=== PATIENT | male | born 1965 | race Caucasian/White ===

== ENCOUNTER 2021-07-08 07:06 | Inpatient (IN) ==
[2021-07-08 07:09] VITALS: BMI 27.9
--- NOTE | 2021-07-08 07:34 | DR.SOBA ---
HPI Time Seen Time Seen by Provider: 07/08/21 07:23 Primary Care Physician Primary Care Physician: LISSETT HPI Comment HPI Comment: A 56 y/o male presenting with c/o "hurting in lungs, SOB and coughing." He denies fever or chills. Complaints Chief Complaint:: PT C/O HURTING IN HIS LUNGS. PATIENT STATES HE HAS BEEN SICK FOR TWO WEEKS, BUT THE AST THREE DAYS HE HAS BEEN HAVING SEVERE SHORTNESS OF BREATH WITH LUNG PAIN. PATIENT IS NOTED TO NOT BE ABLE TO TALK VERY MUCH D/T COUGHING COVID-19 Coronavirus risk:travel/contact w/high risk person: Yes Has patient experienced Coronavirus symptoms: Yes Coronavirus symptoms experienced: Coughing and Shortness of Breath Reviewed Nurses Notes Reviewed: Yes Source History Provided: Patient Mode of Arrival Mode of Arrival: Ambulatory Timing Onset of Chief Complaint: 07/05/21 Duration Duration: Weeks Context Onset:: At Rest PE Risk Factors:: None PMH PMH Past Medical History: No Past Surgical History: Yes Surgical History: Appendectomy Family History History of Family Medical Conditions: No Social History Does any household member use tobacco: No Alcohol Use: None Do you use any recreational Drugs:: No Lives With: Family Lives Where: Home Travel Risk Coronavirus risk:travel/contact w/high risk person: Yes Has patient experienced Coronavirus symptoms: Yes Coronavirus symptoms experienced: Coughing and Shortness of Breath Infectious screening In the last 2 months have you had wt loss of >10#?: NO Have you had fever, night sweats or hemotysis?: No Have you traveled outside the country in the last 6 months?: No Isolation: Droplet ROS Review of Systems Constitutional: No Symptoms Reported Eyes: No Symptoms Reported ENTM: No Symptoms Reported Respiratoy: Non-Productive Cough and Short of Breath Cardiovascular: No Symptoms Reported Gastrointestinal/Abdominal: No Symptoms Reported Genitourinary: No Symptoms Reported Neurological: No Symptoms Reported Musculoskeletal: No Symptoms Reported Integumentary: No Symptoms Reported Hematologic/Lymphatic: No Symptoms Reported Endocrine: No Symptoms Reported Psychiatric: No Symptoms Reported PE Vital Signs Vitals: Temperature 99.5 F Pulse Rate 73 Respiratory Rate 26 Blood Pressure [Right Arm] 117/69 Blood Pressure 112/71 O2 Sat by Pulse Oximetry 95 General Limitations: No Limitations General Appearance: Alert and In No Apparent Distress Head Head Exam: Normal Inspection, Atraumatic and Normocephalic Eyes Eye exam: Normal Appearance and EOMI ENT ENT Exam: Normal Exam and Normal Oropharynx Neck Neck Exam: Normal Inspection, Full ROM and Trachea Midline Chest Chest Inspection: Normal Inspection and Symmetric Chest Wall Rise Respiratory Respiratory Exam: Normal Lung Sounds Bilat Cardiovascular Cardiovascular Exam: Regular Rate, Normal Rhythm, +S1 and +S2 Abdominal Exam Abdominal Exam: Normal Inspection, Normal Bowel Sounds and Soft Extremities Extremities Exam: Normal Inspection and Full ROM Back Back Exam: Normal Inspection and Full ROM Neurologic Neurological Exam: Alert and Oriented X3 Psychiatric Psychiatric Exam: Normal Affect and Normal Mood Skin Skin Exam: Intact COURSE Reevaluation 1st: Unchanged Education/Counseling Education/Counseling: Patient, Education and Counseling Educated On: Treatment, Diagnosis, Prognosis and Needs for Follow Up ROR Labs Reviewed Result Diagrams: 07/10/21 05:45 07/10/21 05:45 Laboratory: 07/08/21 15:55 Urine,Clean Catch Urine Culture - Preliminary WBC 12.1 X10^3/uL (3.6-10.0) H 07/08/21 07:30 RBC 4.51 X10^6/uL (4.7-6.0) L 07/08/21 07:30 Hgb 13.2 g/dL (13.5-18.0) L 07/08/21 07:30 Hct 39.0 % (42.0-54.0) L 07/08/21 07:30 MCV 86.5 fL (80.0-100.0) 07/08/21 07:30 MCH 29.3 pg (27.0-34.0) 07/08/21 07:30 MCHC 33.9 g/dL (33.0-35.0) 07/08/21 07:30 RDW 12.9 % (11.6-16.5) 07/08/21 07:30 Plt Count 352 X10^3/uL (150.0-450.0) 07/08/21 07:30 MPV 7.4 fL (7.4-11.0) 07/08/21 07:30 Neut % (Auto) 88.3 % (42.0-75.0) H 07/08/21 07:30 Lymph % (Auto) 5.0 % (21.0-51.0) L 07/08/21 07:30 [place] % (Auto) 6.0 % (0.0-13.0) 07/08/21 07:30 Eos % (Auto) 0.1 % (0.9-2.9) L 07/08/21 07:30 Baso % (Auto) 0.6 % (0.2-1.0) 07/08/21 07:30 Neut # (Auto) 10.7 x10^3/uL (2.2-4.8) H 07/08/21 07:30 Lymph # (Auto) 0.6 X10^3/uL (1.3-2.9) L 07/08/21 07:30 [place] # (Auto) 0.7 x10^3/uL (0.3-0.8) 07/08/21 07:30 Eos # (Auto) 0.0 x10^3/uL (0.0-0.2) 07/08/21 07:30 Baso # (Auto) 0.1 X10^3/uL (0.0-0.1) 07/08/21 07:30 Absolute Nucleated RBC 0.0 /100WBC 07/08/21 07:30 PT 16.1 SECONDS (11.8-14.3) 07/08/21 15:18 INR Target Range - 07/08/21 15:18 INR 1.36 (0.8-1.3) H 07/08/21 15:18 APTT 39.9 SECONDS (22.9-36.5) H 07/08/21 15:18 PTT Comment - 07/08/21 15:18 D-Dimer 3.56 ug/ml (0.0-0.57) H* 07/08/21 07:36 Sample Site Rbra 07/08/21 10:00 ABG pH 7.510 (7.35-7.45) H 07/08/21 10:00 ABG pCO2 30.0 mmHg (35.0-45.0) L 07/08/21 10:00 ABG pO2 56.0 mmHg (80.0-100.0) L 07/08/21 10:00 ABG HCO3 23.9 mmol/L (22-26) 07/08/21 10:00 ABG O2 Saturation 92.0 % (90-100) 07/08/21 10:00 ABG Base Excess 1.6 mmol/L (-2.0-2.0) 07/08/21 10:00 Lonnie Test N/a 07/08/21 10:00 A-a Gradient 56.0 mmHg 07/08/21 10:00 FiO2 21.0 07/08/21 10:00 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,building operator 07/08/21 10:00 Sodium 138 mmol/L (136-145) 07/08/21 07:30 Corrected Sodium 140 mmol/L (136-145) 07/08/21 07:30 Potassium 3.9 mmol/L (3.5-5.1) 07/08/21 07:30 Chloride 101 mmol/L (98-107) 07/08/21 07:30 Carbon Dioxide 24.2 mmol/L (21-32) 07/08/21 07:30 BUN 15 mg/dL (7-18) 07/08/21 07:30 Creatinine 1.02 mg/dL (0.70-1.30) 07/08/21 07:30 Est GFR (MDRD) Af Amer > 60 (>60) 07/08/21 07:30 Est GFR (MDRD) Non-Af > 60 (>60) 07/08/21 07:30 Glucose 163 mg/dL (65-99) H 07/08/21 07:30 Lactic Acid 0.8 mmol/L (0.4-2.0) 07/08/21 15:18 Calcium 8.1 mg/dL (8.5-10.1) L 07/08/21 07:30 Corrected Calcium 9.0 mg/dL (8.5-10.1) 07/08/21 07:30 Ferritin 466 ng/mL (26-388) H 07/08/21 07:30 Total Bilirubin 1.20 mg/dL (0.2-1.0) H 07/08/21 07:30 AST 12 Units/L (15-37) L 07/08/21 07:30 ALT 13 Units/L (12-78) 07/08/21 07:30 Alkaline Phosphatase 76 Units/L (46-116) 07/08/21 07:30 Creatine Kinase 25 Units/L (39-308) L 07/08/21 15:18 CK-MB (CK-2) < 1.0 ng/mL (0-4.0) 07/08/21 15:18 CK/CKMB % Calc 4.0 % (<4) 07/08/21: Troponin I High Sens 4.4 ng/L (4.0-60.0) 07/08/21 15:18 C-Reactive Protein 181.50 mg/L (0-3.0) H 07/08/21 07:30 B-Natriuretic Peptide 27.8 pg/mL (0-79) 07/08/21 07:30 Total Protein 7.3 g/dL (6.4-8.2) 07/08/21 07:30 Albumin 2.9 g/dL (3.4-5.0) L 07/08/21: Globulin 4.4 g/dL (2.5-4.5) 07/08/21 07:30 Albumin/Globulin Ratio 0.7 Ratio (1.1-2.1) L 07/08/21 07:30 Specimen Type Clean catch urine 07/08/21 15:55 Urine Color Dark yellow (YELLOW) 07/08/21 15:55 Urine Appearance Hazy (CLEAR) 07/08/21 15:55 Urine pH 6.5 (5.0 - 8.0) 07/08/21 15:55 Ur Specific [place] 1.005 (1.000-1.030) 07/08/21 15:55 Urine Protein 3+ (NEGATIVE) 07/08/21 15:55 Urine Glucose (UA) Negative (NEGATIVE) 07/08/21 15:55 Urine Ketones 4+ (NEGATIVE) 07/08/21 15:55 Urine Occult Blood 1+ (NEGATIVE) 07/08/21 15:55 Urine Nitrite Negative (NEGATIVE) 07/08/21 15:55 Urine Bilirubin 1+ (NEGATIVE) 07/08/21 15:55 Urine Urobilinogen 3+ (NORMAL) 07/08/21 15:55 Ur Leukocyte Esterase 1+ (NEGATIVE) 07/08/21 15:55 Urine RBC 0-2 /HPF (0-3) 07/08/21 15:55 Urine WBC 0-2 /HPF (0-5) 07/08/21 15:55 Ur Squamous Epith Cells Few /HPF (NEGATIVE) 07/08/21 15:55 Urine Bacteria 1+ /HPF (NEGATIVE) 07/08/21 15:55 Ur Culture Indicated? Yes/culture set up 07/08/21 15:55 Influenza Type A Ag Negative-presumptive (NEGATIVE) 07/08/21 09:50 Influenza Type B Ag Negative-presumptive (NEGATIVE) 07/08/21 09:50 SARS CoV-2 RNA Rapid [place] Negative (NEGATIVE) 07/08/21 08:08 SARS-CoV-2 Antigen Presumptive negative (NEGATIVE) 07/08/21 15:45 Opioid Opioid Risk Tool Age (Chepe box if 16-45): No History of Preadolescent Sexual Abuse: No Total: 0 Total Score Risk Category: Low Risk Copyright: Brijesh DUGAN predicting aberrant behaviors Diagnosis Discharge Problem: Respiratory distress, Pericardial effusion, Elevated d-dimer
[2021-07-08 07:43] LABS: BASOPHILS # (AUTO) 0.1 X10^3/uL (0.0-0.1); BASOPHILS % (AUTO) 0.6 % (0.2-1.0); EOSINOPHILS % (AUTO) 0.1 % (0.9-2.9); HEMOGLOBIN 13.2 g/dL (13.5-18.0); LYMPHOCYTES # (AUTO) 0.6 X10^3/uL (1.3-2.9); MEAN CORPUSCULAR HEMOGLOBIN 29.3 pg (27.0-34.0); MEAN CORPUSCULAR HGB CONC 33.9 g/dL (33.0-35.0); MEAN CORPUSCULAR VOLUME 86.5 fL (80.0-100.0); MEAN PLATELET VOLUME 7.4 fL (7.4-11.0); MONOCYTES # (AUTO) 0.7 x10^3/uL (0.3-0.8); NEUTROPHILS # (AUTO) 10.7 x10^3/uL (2.2-4.8); NEUTROPHILS % (AUTO) 88.3 % (42.0-75.0); PLATELET COUNT 352 X10^3/uL (150.0-450.0); RED BLOOD COUNT 4.51 X10^6/uL (4.7-6.0); RED CELL DISTRIBUTION WIDTH 12.9 % (11.6-16.5); WHITE BLOOD COUNT 12.1 X10^3/uL (3.6-10.0)
--- NOTE | 2021-07-08 07:49 | RAD ---
HISTORYCough, shortness of breathSTUDYChest AP portableCOMPARISONNoneFINDINGSThe heart is enlarged. No congestive heart failure is noted. No acute alveolar infiltrates or pleural effusions are identified. Bony thorax is unremarkable.IMPRESSIONCardiomegaly without congestive heart failureLungs clearElectronically signed by: RIVKA LAUGHLIN (Jul 08, 2021 07:48:14)
[2021-07-08 08:50] LABS: ALANINE AMINOTRANSFERASE 13 Units/L (12-78); ALBUMIN 2.9 g/dL (3.4-5.0); ALKALINE PHOSPHATASE 76 Units/L (46-116); ASPARTATE AMINO TRANSFERASE 12 Units/L (15-37); BLOOD UREA NITROGEN 15 mg/dL (7-18); CALCIUM 8.1 mg/dL (8.5-10.1); CARBON DIOXIDE 24.2 mmol/L (21-32); CHLORIDE 101 mmol/L (98-107); COR NA(FOR HYPERGLY) 140 mmol/L (136-145); CREATININE 1.02 mg/dL (0.70-1.30); SODIUM 138 mmol/L (136-145); TOTAL PROTEIN 7.3 g/dL (6.4-8.2); eGFR NON BLACK RACES > 60 (>60)
[2021-07-08] MEDS ORDERED: TORADOL 60 MG VIAL IM ONE (09:52)
[2021-07-08] MEDS ORDERED: TESSALON PERLES PO ONE ×2 (09:56→10:11)
--- NOTE | 2021-07-08 09:56 | DR.SOBA ---
HPI Time Seen Time Seen by Provider: 07/08/21 07:23 Primary Care Physician Primary Care Physician: LISSETT HPI Comment HPI Comment: PATIENT IS 56YR OLD MALE IN ER WITH INCEASING SOB, CHEST PAIN AND GENERALIZED WEAKNESS TIMES 3 DAYS. HE IS COUGHING, PRODUCTIVE CLEAR SPUTUM. PATIENT ILLNESS STARTED 2 WEEKS AGO. AND HAVE PROGRESSIVELY GOTTEN WORSE. DENIES VOMITING OR DIARRHEA. APPETITE IS POOR. COUGHING CAUSE HIM NOT TO TALK. SEVERE PEOPLE AROUND HIM HAVE BEING SICK WITH COVID 19 VIRUS INFECTION. Complaints Chief Complaint Doctors Comments: INCREASING SOB, CHEST PAIN TIMES 3 DAYS, SICK FOR 2 WERKS. Chief Complaint:: PT C/O HURTING IN HIS LUNGS. PATIENT STATES HE HAS BEEN SICK FOR TWO WEEKS, BUT THE AST THREE DAYS HE HAS BEEN HAVING SEVERE SHORTNESS OF BREATH WITH LUNG PAIN. PATIENT IS NOTED TO NOT BE ABLE TO TALK VERY MUCH D/T COUGHING COVID-19 Coronavirus risk:travel/contact w/high risk person: Yes Has patient experienced Coronavirus symptoms: Yes Coronavirus symptoms experienced: Coughing and Shortness of Breath Reviewed Nurses Notes Reviewed: Yes Source History Provided: Patient Mode of Arrival Mode of Arrival: Ambulatory Timing Onset of Chief Complaint: 07/05/21 Duration Duration: Days Context Onset:: At Rest PE Risk Factors:: None History of:: None Currently on:: denies Neither Prehospital Care:: None and Injected B2 Modifying Factors Worsens:: Exertion and Lying Flat Improves:: Rest and Sitting Up Associated Signs and Symptoms Associated Signs and Symptoms: Cough If Chest Pain Quality: Sharp and Pleuritic Location: Substernal If Cough Cough: Productive and Clear PMH PMH Past Medical History: No Past Surgical History: Yes Surgical History: Appendectomy Family History History of Family Medical Conditions: No Social History Does any household member use tobacco: No Alcohol Use: None Do you use any recreational Drugs:: No Lives With: Family Lives Where: Home Travel Risk Coronavirus risk:travel/contact w/high risk person: Yes Has patient experienced Coronavirus symptoms: Yes Coronavirus symptoms experienced: Coughing and Shortness of Breath Infectious screening In the last 2 months have you had wt loss of >10#?: NO Have you had fever, night sweats or hemotysis?: No Have you traveled outside the country in the last 6 months?: No Isolation: Droplet ROS Review of Systems Constitutional: See HPI, Weakness and Fatigue; negative Fever Eyes: No Symptoms Reported and See HPI ENTM: See HPI, Nose Discharge and Nose Congestion; negative Throat Pain Respiratoy: See HPI, Productive Cough and Short of Breath Cardiovascular: No Symptoms Reported and See HPI; negative Chest Pain Gastrointestinal/Abdominal: No Symptoms Reported and See HPI; negative Abdominal Pain, Diarrhea and Vomiting Genitourinary: No Symptoms Reported and See HPI; negative Dysuria and Hematuria Neurological: See HPI, Headache and Weakness; negative Dizziness Musculoskeletal: See HPI, Back Pain and Muscle Pain Integumentary: No Symptoms Reported and See HPI; negative Rash and Juandice Hematologic/Lymphatic: No Symptoms Reported and See HPI; negative Easy Bruising Endocrine: No Symptoms Reported and See HPI; negative Increased Thirst and Increased Urine Psychiatric: No Symptoms Reported and See HPI All Other Systems: Reviewed and Negative PE Vital Signs Vitals: Temperature 99.5 F Pulse Rate 73 Respiratory Rate 26 Blood Pressure [Right Arm] 117/69 Blood Pressure 112/71 O2 Sat by Pulse Oximetry 95 General Limitations: No Limitations General Appearance: Alert and In Distress Head Head Exam: Normal Inspection, Atraumatic and Normocephalic Eyes Eye exam: Normal Appearance and PERRL; negative Scleral Icterus and Conjunctival Injection ENT ENT Exam: Normal External Ear Exam; negative Normal Oropharynx and TM's Normal Bilaterally Neck Neck Exam: Normal Inspection Chest Chest Inspection: Normal Inspection Respiratory Respiratory Exam: Normal Lung Sounds Bilat Respiratory Exam: Bilateral: Clear to Auscultation Cardiovascular Cardiovascular Exam: Regular Rate and Normal Rhythm Abdominal Exam Abdominal Exam: Normal Inspection, Normal Bowel Sounds and Soft Extremities Extremities Exam: Normal Inspection Back Back Exam: Normal Inspection Neurologic Neurological Exam: Alert and Oriented X3 Psychiatric Psychiatric Exam: Normal Affect and Normal Mood Skin Skin Exam: Warm, Dry, Intact and Normal Color MDM Differential Diagnosis Differential Diagnosis: Asthma, Bronchitis, CHF, Hypertensive Emergency, Hyponatremia, Pneumonia, Pulmonary embolism, Respiratory Insufficiency, Sinusitis and URI COURSE Treatment Treatment: SEE ORDER. SOLUMEDROL 125 IV, TORADOL 30MG IV AND TESSALON PERLES 200MG PO IN ER. SOB SLIGHTLY IMPROVED. Consultation Consultation Comments: DISCUSSED PATIENT WITH DR. BATRES. HE WILL ADMIT PATIENT. Education/Counseling Education/Counseling: Patient Educated On: Diagnosis ROR Labs Reviewed Laboratory Results Reviewed?: Yes Result Diagrams: 07/09/21 03:50 07/09/21 03:50 Laboratory: WBC 12.1 X10^3/uL (3.6-10.0) H 07/08/21 07:30 RBC 4.51 X10^6/uL (4.7-6.0) L 07/08/21 07:30 Hgb 13.2 g/dL (13.5-18.0) L 07/08/21 07:30 Hct 39.0 % (42.0-54.0) L 07/08/21 07:30 MCV 86.5 fL (80.0-100.0) 07/08/21 07:30 MCH 29.3 pg (27.0-34.0) 07/08/21 07: MCHC 33.9 g/dL (33.0-35.0) 07/08/21 07: RDW 12.9 % (11.6-16.5) 07/08/21 07:30 Plt Count 352 X10^3/uL (150.0-450.0) 07/08/21 07:30 MPV 7.4 fL (7.4-11.0) 07/08/21 07:30 Neut % (Auto) 88.3 % (42.0-75.0) H 07/08/21 07:30 Lymph % (Auto) 5.0 % (21.0-51.0) L 07/08/21 07:30 [place] % (Auto) 6.0 % (0.0-13.0) 07/08/21 07:30 Eos % (Auto) 0.1 % (0.9-2.9) L 07/08/21 07:30 Baso % (Auto) 0.6 % (0.2-1.0) 07/08/21 07:30 Neut # (Auto) 10.7 x10^3/uL (2.2-4.8) H 07/08/21 07:30 Lymph # (Auto) 0.6 X10^3/uL (1.3-2.9) L 07/08/21 07:30 [place] # (Auto) 0.7 x10^3/uL (0.3-0.8) 07/08/21 07:30 Eos # (Auto) 0.0 x10^3/uL (0.0-0.2) 07/08/21 07:30 Baso # (Auto) 0.1 X10^3/uL (0.0-0.1) 07/08/21 07:30 Absolute Nucleated RBC 0.0 /100WBC 07/08/21 07:30 PT 16.1 SECONDS (11.8-14.3) 07/08/21 15:18 INR Target Range - 07/08/21 15:18 INR 1.36 (0.8-1.3) H 07/08/21 15:18 APTT 39.9 SECONDS (22.9-36.5) H 07/08/21 15:18 PTT Comment - 07/08/21 15:18 D-Dimer 3.56 ug/ml (0.0-0.57) H* 07/08/21 07:36 Sample Site Rbra 07/08/21 10:00 ABG pH 7.510 (7.35-7.45) H 07/08/21 10:00 ABG pCO2 30.0 mmHg (35.0-45.0) L 07/08/21 10:00 ABG pO2 56.0 mmHg (80.0-100.0) L 07/08/21 10:00 ABG HCO3 23.9 mmol/L (22-26) 07/08/21 10:00 ABG O2 Saturation 92.0 % (90-100) 07/08/21 10:00 ABG Base Excess 1.6 mmol/L (-2.0-2.0) 07/08/21 10:00 Lonnie Test N/a 07/08/21 10:00 A-a Gradient 56.0 mmHg 07/08/21 10:00 FiO2 21.0 07/08/21 10:00 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,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 Sodium 138 mmol/L (136-145) 07/08/21 07:30 Corrected Sodium 140 mmol/L (136-145) 07/08/21 07:30 Potassium 3.9 mmol/L (3.5-5.1) 07/08/21 07:30 Chloride 101 mmol/L (98-107) 07/08/21 07:30 Carbon Dioxide 24.2 mmol/L (21-32) 07/08/21 07:30 BUN 15 mg/dL (7-18) 07/08/21 07:30 Creatinine 1.02 mg/dL (0.70-1.30) 07/08/21 07:30 Est GFR (MDRD) Af Amer > 60 (>60) 07/08/21 07:30 Est GFR (MDRD) Non-Af > 60 (>60) 07/08/21 07:30 Glucose 163 mg/dL (65-99) H 07/08/21 07:30 Lactic Acid 0.8 mmol/L (0.4-2.0) 07/08/21 15:18 Calcium 8.1 mg/dL (8.5-10.1) L 07/08/21 07:30 Corrected Calcium 9.0 mg/dL (8.5-10.1) 07/08/21 07:30 Ferritin 466 ng/mL (26-388) H 07/08/21 07:30 Total Bilirubin 1.20 mg/dL (0.2-1.0) H 07/08/21 07:30 AST 12 Units/L (15-37) L 07/08/21 07:30 ALT 13 Units/L (12-78) 07/08/21 07:30 Alkaline Phosphatase 76 Units/L (46-116) 07/08/21 07:30 Creatine Kinase 25 Units/L (39-308) L 07/08/21 15:18 CK-MB (CK-2) < 1.0 ng/mL (0-4.0) 07/08/21 15:18 CK/CKMB % Calc 4.0 % (<4) 07/08/21 15:18 Troponin I High Sens 4.4 ng/L (4.0-60.0) 07/08/21 15:18 C-Reactive Protein 181.50 mg/L (0-3.0) H 07/08/21 07:30 B-Natriuretic Peptide 27.8 pg/mL (0-79) 07/08/21 07:30 Total Protein 7.3 g/dL (6.4-8.2) 07/08/21 07:30 Albumin 2.9 g/dL (3.4-5.0) L 07/08/21 07:30 Globulin 4.4 g/dL (2.5-4.5) 07/08/21 07:30 Albumin/Globulin Ratio 0.7 Ratio (1.1-2.1) L 07/08/21 07:30 Specimen Type Clean catch urine 07/08/21 15:55 Urine Color Dark yellow (YELLOW) 07/08/21 15:55 Urine Appearance Hazy (CLEAR) 07/08/21 15:55 Urine pH 6.5 (5.0 - 8.0) 07/08/21 15:55 Ur Specific [place] 1.005 (1.000-1.030) 07/08/21 15:55 Urine Protein 3+ (NEGATIVE) 07/08/21 15:55 Urine Glucose (UA) Negative (NEGATIVE) 07/08/21 15:55 Urine Ketones 4+ (NEGATIVE) 07/08/21 15:55 Urine Occult Blood 1+ (NEGATIVE) 07/08/21 15:55 Urine Nitrite Negative (NEGATIVE) 07/08/21 15:55 Urine Bilirubin 1+ (NEGATIVE) 07/08/21 15:55 Urine Urobilinogen 3+ (NORMAL) 07/08/21 15:55 Ur Leukocyte Esterase 1+ (NEGATIVE) 07/08/21 15:55 Urine RBC 0-2 /HPF (0-3) 07/08/21 15:55 Urine WBC 0-2 /HPF (0-5) 07/08/21 15:55 Ur Squamous Epith Cells Few /HPF (NEGATIVE) 07/08/21 15:55 Urine Bacteria 1+ /HPF (NEGATIVE) 07/08/21 15:55 Ur Culture Indicated? Yes/culture set up 07/08/21 15:55 Influenza Type A Ag Negative-presumptive (NEGATIVE) 07/08/21 09:50 Influenza Type B Ag Negative-presumptive (NEGATIVE) 07/08/21 09:50 SARS CoV-2 RNA Rapid [place] Negative (NEGATIVE) 07/08/21 08:08 SARS-CoV-2 Antigen Presumptive negative (NEGATIVE) 07/08/21 15:45 XRAY XRAY Interpreted by: Radiologist (REPORT NOTED AND DISCUSSED WITH PATIENT.) and Self Opioid Opioid Risk Tool Age ([place] box if 16-45): No History of Preadolescent Sexual Abuse: No Total: 0 Total Score Risk Category: Low Risk Copyright: [facility] predicting aberrant behaviors Diagnosis Discharge Problem: Respiratory distress, Pericardial effusion, Elevated d-dimer
[2021-07-08 10:06] LABS: ABG BASE EXCESS 1.6 mmol/L (-2.0-2.0); ABG HCO3 23.9 mmol/L (22-26)
[2021-07-08] MEDS ORDERED: TORADOL 30 MG VIAL IVP ONE (10:10)
[2021-07-08] MEDS ORDERED: SOLU-Medrol 125 MG VIAL IVP ONE (10:10)
[2021-07-08] MEDS ORDERED: TORADOL 30 MG VIAL ONE (10:11)
[2021-07-08] MEDS ORDERED: SOLU-Medrol 125 MG VIAL ONE (10:11)
--- NOTE | 2021-07-08 11:34 | CT ---
HISTORYElevated D-dimerSTUDYCTA chest with contrast for pulmonary embolusTechnique: Axial post-contrast images with coronal, sagittal, and 3 dimensional maximum intensity projection images obtained and evaluated. Dose reduction procedures were used with mA/kv adjusted for body size.COMPARISONNoneFINDINGSThere is no evidence for acute pulmonary thromboembolic disease. Examination of the mediastinum demonstrated no evidence for mediastinal masses, enlarged mediastinal or enlarged hilar adenopathy or significant aortic abnormality. There is a moderately large pericardial effusion present maximum width 3.8 cm. Cardiac echo evaluation is recommended as is cardiology consult in order to determine if pericardiocentesis is indicated. Trace left pleural effusion is present. No definite right pleural effusion is identified. No chest wall or axillary abnormality is identified. Those portions of the upper abdominal organs visualized were within normal limits to the limitations early arterial injection timing. Examination of the lung ozuna demonstrated no evidence for nodules, masses, alveolar infiltrates, areas of consolidation, or peribronchial thickening. No definite bronchiectasis is identified. There are some atelectatic lung changes in the left lung base.IMPRESSIONNo evidence for acute pulmonary thromboembolic diseaseModerately large pericardial effusion maximum with 3.8 cm. Cardiac echo examination and cardiology evaluation is recommended in order to determine if pericardiocentesis is indicated.Lungs free of acute infiltrates. Some atelectatic changes in the left lung base.Electronically signed by: RIVKA LAUGHLIN (Jul 08, 2021 11:32:37)
[2021-07-08] MEDS ORDERED: ROCEPHIN 1 GRAM IV PREMIX 1 G/50 ML IV.SOLN. IV ONE ×2 (12:54→13:20)
[2021-07-08] MEDS ORDERED: NS 250 ML IV 250 ML IV ONE (13:20)
[2021-07-08] MEDS ORDERED: PROVENTIL NEB TX 0.083% 2.5MG/ 3ML NEB PRN (14:42)
[2021-07-08] MEDS ORDERED: REMDESIVIR 200 MG in NS 250 ML IV 250 ML IV ONE (14:46)
[2021-07-08] MEDS ORDERED: HEPARIN SODIUM INJ 5000 UNITS IVP ONE ×2 (14:51→21:40)
[2021-07-08] MEDS ORDERED: SOLU-Medrol 125 MG VIAL IM SCH (15:00)
[2021-07-08] MEDS ORDERED: HEPARIN SODIUM IN D5W 25,000 UNITS/500 ML BAG ONE (15:08)
[2021-07-08] MEDS ORDERED: HEPARIN SODIUM INJ 5000 UNITS ONE ×2 (15:08→21:42)
[2021-07-08] MEDS: SOLU-Medrol 40 MG VIAL IVP SCH ×2 (16:00→22:00)
[2021-07-08 16:04] LABS: BILIRUBIN,URINE 1+ (NEGATIVE); BLOOD/HEMOGLOBIN,URINE 1+ (NEGATIVE); GLUCOSE, URINE NEGATIVE (NEGATIVE); KETONES,URINE 4+ (NEGATIVE); LEUKOCYTE ESTERASE ,URINE 1+ (NEGATIVE); NITRITES,URINE NEGATIVE (NEGATIVE); PH,URINE 6.5 (5.0 - 8.0); PROTEIN,URINE 3+ (NEGATIVE); UROBILINOGEN,URINE 3+ (NORMAL)
[2021-07-08] MEDS: HEPARIN SODIUM IN D5W 25,000 UNITS/500 ML BAG IV PRN (16:15)
[2021-07-08 16:17] LABS: APPEARANCE,URINE HAZY (CLEAR); BACTERIA,URINE 1+ /HPF (NEGATIVE); COLOR,URINE DARK YELLOW (YELLOW); RBC,URINE 0-2 /HPF (0-3); SQUAMOUS EPITHELIAL CELL,UR FEW /HPF (NEGATIVE)
[2021-07-08] MEDS ORDERED: REMDESIVIR IV ONE (16:58)
[2021-07-08] MEDS ORDERED: NS 100 ML IV + SPIKE MINIBAG* 100 ML IV ONE ×2 (16:59→17:03)
[2021-07-08] MEDS ORDERED: ZITHROMAX TAB 250 MG PO ONE (17:02)
[2021-07-08] MEDS ORDERED: INVANZ INJ 1 GM VIAL ONE (17:03)
[2021-07-08] MEDS: INVANZ INJ 1 GM VIAL 1 GM in NS 100 ML IV + SPIKE MINIBAG* 100 ML IV SCH (17:10)
[2021-07-08] MEDS: ZITHROMAX TAB 250 MG PO SCH (17:11)
[2021-07-08] MEDS: BROVANA IN SCH ×2 (18:20→20:17)
[2021-07-08] MEDS: DUONEB 0.5 MG/3 MG (3 mL) NEB SCH (18:21)
[2021-07-08] MEDS: PULMICORT NEB TX 0.5 MG NEB SCH ×2 (18:21→20:17)
[2021-07-08 18:59] LABS: CREATINE KINASE 25 Units/L (39-308); CREATINE KINASE MB < 1.0 ng/mL (0-4.0)
[2021-07-09] MEDS: DUONEB 0.5 MG/3 MG (3 mL) NEB SCH ×4 (00:10→17:15)
[2021-07-09] MEDS ORDERED: NS 250 ML IV 250 ML IV ONE (01:06)
[2021-07-09 03:25] LABS: BILIRUBIN,URINE NEGATIVE (NEGATIVE); BLOOD/HEMOGLOBIN,URINE 1+ (NEGATIVE); GLUCOSE, URINE NEGATIVE (NEGATIVE); KETONES,URINE 2+ (NEGATIVE); LEUKOCYTE ESTERASE ,URINE NEGATIVE (NEGATIVE); NITRITES,URINE NEGATIVE (NEGATIVE); PROTEIN,URINE 2+ (NEGATIVE); UROBILINOGEN,URINE 1+ (NORMAL)
[2021-07-09 03:43] LABS: APPEARANCE,URINE CLEAR (CLEAR); BACTERIA,URINE 2+ /HPF (NEGATIVE); COLOR,URINE AMBER (YELLOW); RBC,URINE NONE SEEN /HPF (0-3); SQUAMOUS EPITHELIAL CELL,UR FEW /HPF (NEGATIVE)
[2021-07-09 04:07] LABS: BASOPHILS % (AUTO) 0.3 % (0.2-1.0); HEMATOCRIT 36.1 % (42.0-54.0); HEMOGLOBIN 12.2 g/dL (13.5-18.0); LYMPHOCYTES # (AUTO) 0.5 X10^3/uL (1.3-2.9); LYMPHOCYTES % (AUTO) 4.4 % (21.0-51.0); MEAN CORPUSCULAR HEMOGLOBIN 29.1 pg (27.0-34.0); MEAN CORPUSCULAR HGB CONC 33.9 g/dL (33.0-35.0); MEAN CORPUSCULAR VOLUME 85.8 fL (80.0-100.0); MEAN PLATELET VOLUME 7.6 fL (7.4-11.0); MONOCYTES # (AUTO) 0.5 x10^3/uL (0.3-0.8); MONOCYTES % (AUTO) 4.6 % (0.0-13.0); NEUTROPHILS # (AUTO) 9.7 x10^3/uL (2.2-4.8); NEUTROPHILS % (AUTO) 90.7 % (42.0-75.0); PLATELET COUNT 330 X10^3/uL (150.0-450.0); RED BLOOD COUNT 4.21 X10^6/uL (4.7-6.0); RED CELL DISTRIBUTION WIDTH 12.7 % (11.6-16.5); WHITE BLOOD COUNT 10.7 X10^3/uL (3.6-10.0)
[2021-07-09] MEDS ORDERED: KLOR-CON PO PRN (04:15)
[2021-07-09] MEDS ORDERED: HEPARIN SODIUM INJ 5000 UNITS IVP ONE ×3 (04:15→19:30)
[2021-07-09] MEDS ORDERED: POTASSIUM CHLORIDE LIQ 20 MEQ UDC PO PRN (04:15)
[2021-07-09 04:16] LABS: ALANINE AMINOTRANSFERASE 11 Units/L (12-78); ALBUMIN 2.6 g/dL (3.4-5.0); ALKALINE PHOSPHATASE 71 Units/L (46-116); ASPARTATE AMINO TRANSFERASE 9 Units/L (15-37); BLOOD UREA NITROGEN 19 mg/dL (7-18); CALCIUM 8.4 mg/dL (8.5-10.1); CARBON DIOXIDE 24.8 mmol/L (21-32); CHLORIDE 101 mmol/L (98-107); COR CA(FOR HYPOALB) 9.5 mg/dL (8.5-10.1); COR NA(FOR HYPERGLY) 139 mmol/L (136-145); CREATININE 0.87 mg/dL (0.70-1.30); SODIUM 137 mmol/L (136-145); TOTAL PROTEIN 7.3 g/dL (6.4-8.2); eGFR NON BLACK RACES > 60 (>60)
[2021-07-09] MEDS ORDERED: HEPARIN SODIUM INJ 5000 UNITS ONE (04:17)
[2021-07-09] MEDS ORDERED: MAGNESIUM SULFATE 1 GRAM/100 mL PREMIX 1 G/100 ML BAG IV ONE ×2 (04:18)
[2021-07-09] MEDS: MAGNESIUM SULFATE 1 GRAM/100 mL PREMIX 1 G/100 ML BAG IV PRN ×2 (04:27→05:40)
[2021-07-09] MEDS ORDERED: K-DUR TAB 20 MEQ PO ONE (05:17)
[2021-07-09 05:22] LABS: PLATELET MORPHOLOGY COMMENT NORMAL (NORMAL)
[2021-07-09] MEDS: K-DUR TAB 20 MEQ PO PRN (05:40)
[2021-07-09] MEDS: SOLU-Medrol 40 MG VIAL IVP SCH ×3 (05:41→21:37)
[2021-07-09] MEDS: PULMICORT NEB TX 0.5 MG NEB SCH ×2 (08:50→20:10)
[2021-07-09] MEDS: BROVANA IN SCH ×2 (08:50→20:10)
[2021-07-09] MEDS: REMDESIVIR 100 MG in NS 100 ML IV + SPIKE MINIBAG* 120 ML IV SCH (09:46)
[2021-07-09] MEDS: INVANZ INJ 1 GM VIAL 1 GM in NS 100 ML IV + SPIKE MINIBAG* 100 ML IV SCH (09:48)
[2021-07-09] MEDS: ZITHROMAX TAB 250 MG PO SCH (09:49)
[2021-07-09] MEDS: HEPARIN SODIUM IN D5W 25,000 UNITS/500 ML BAG IV PRN (12:10)
[2021-07-09] MEDS ORDERED: ZANAFLEX PO PRN (20:10)
--- NOTE | 2021-07-09 20:28 | DR.H&P ---
H&P - History & Physical for Day of: H&P Date: 07/08/21 - Chief Complaint Chief Complaint: Dyspnea - History of Present Illness History of Present Illness: Patient is a 56 year old white male who is being admitted due to pleural effusions, hypoxia, suspected COVID infection and multiple other conditions. Patient reports dyspnea began a few days and has progressively gotten worse. Patient has known sick COVID contacts however patient has tested negative for COVID. Patient reports continued SOB. Patient also reports he can feel his heart beat. Patient reports some episodes of chest pain periodically throughout the past month. Denies syncope, diaphoresis. No major PMH. PCP Dr. Montanez - Past Surgical History Surgical History: Appendectomy - Social History Does patient currently use any type of tobacco product: No Have you used tobacco products in the last 12 months: No Type of Tobacco Use: None Does any household member use tobacco: No Alcohol Use: None Drug Use: None - Medications Home Medications: No Known Drug Allergies Allergy (Verified 11/24/20 11:56) CONTINUE taking the following medications tizanidine 4 mg PO BID 07/09/21 [History] - Review of Systems Constitutional: See HPI Eyes: See HPI ENT: See HPI Respiratory: See HPI Cardiovascular: See HPI Gastrointestinal: See HPI Genitourinary: See HPI Musculoskeletal: See HPI Skin: See HPI Neurological: See HPI - Physical Exam Vital Signs: Temperature 97.7 F Pulse Rate [Left] 77 Pulse Rate 80 Respiratory Rate 28 Blood Pressure [Right Arm] 114/71 Blood Pressure 156/84 O2 Sat by Pulse Oximetry 93 Oriented: Normal, Time, Person, Place Eyes: Normal Ear: Normal Nose: Normal Throat: Normal Respiratory: Diminished Throughout, Rhonchi Throughout Cardiovascular: Normal : Normal Auscultation: Bowel Sounds: Normal Palpation: Normal Tenderness: Normal Skin: Normal Musculoskeletal: Normal Psychiatric: Normal Mood Description: Calm Affect: Anxious Speech Pattern: Clear, Appropriate - Assessment/Plan (1) Dyspnea Status: Acute Plan: Supplemental oxygen. Patient tolerating oxygen via nasal cannula. Cultures pending. IV abx and steroids (2) Acute respiratory distress Status: Acute (3) COVID-19 Status: Acute Plan: Remdesivir. See above (4) Pericardial effusion Status: Acute (5) Elevated d-dimer Status: Acute Plan: Heparin drip. Possible micro embolisms - Allergies Allergies/Adverse Reactions: Allergies Allergy/AdvReac Type Severity Reaction Status Date / Time No Known Drug Allergies Allergy Verified 11/24/20 11:56
--- NOTE | 2021-07-09 20:36 | PCM.PROG ---
Progress Note - Subjective Subjective: Patient is a 56 year old white male who was admitted due to resp distress. Despite negative COVID swabs we feel this patient is COVID positive due to clinical presentation. No change in condition at present. Patient is being treated with supplemental oxygen, Heparin drip, remdesivir, IV abx. Possible micro embolisms therefore continue Heparin drip - Past Medical Family Social History Past Med/Fam/Surg Hx: No changes since H&P Allergies: Allergies No Known Drug Allergies Allergy (Verified 11/24/20 11:56) - Review of Systems ROS: No change since H&P - Vital Signs and I&O's Vital Signs: Temperature 97.7 F Pulse Rate [Left] 77 Pulse Rate 80 Respiratory Rate 28 Blood Pressure [Right Arm] 114/71 Blood Pressure 156/84 O2 Sat by Pulse Oximetry 93 Intake and Output: Intake & Output 07/06/21 07/07/21 07/08/21 07/09/21 23:59 23:59 23:59 23:59 Intake Total 992 / 992 1695 / 1695 Output Total 1200 / 1200 Balance 992 / 992 495 / 495 - Physical Exam Oriented: Normal, Time, Person, Place Eyes: Normal Ear: Normal Nose: Normal Throat: Normal Respiratory: Generalized, Diminished, Rhonchi Cardiovascular: Normal : Normal Auscultation: Bowel Sounds: Normal Palpation: Normal Tenderness: Normal Skin: Normal Musculoskeletal: Normal Psychiatric: Normal Mood Description: Calm Affect: Anxious Speech Pattern: Clear, Appropriate - Laboratory and Diagnostics Result Diagrams: 07/09/21 03:50 07/09/21 03:50 Labs: 07/08/21 15:55 Urine,Clean Catch Urine Culture - Preliminary Laboratory WBC 10.7 X10^3/uL (3.6-10.0) H 07/09/21 03:50 RBC 4.21 X10^6/uL (4.7-6.0) L 07/09/21 03:50 Hgb 12.2 g/dL (13.5-18.0) L 07/09/21 03:50 Hct 36.1 % (42.0-54.0) L 07/09/21 03:50 MCV 85.8 fL (80.0-100.0) 07/09/21 03:50 MCH 29.1 pg (27.0-34.0) 07/09/21 03:50 MCHC 33.9 g/dL (33.0-35.0) 07/09/21 03:50 RDW 12.7 % (11.6-16.5) 07/09/21 03:50 Plt Count 330 X10^3/uL (150.0-450.0) 07/09/21 03:50 Plt Count Comment Adequate (ADEQUATE) 07/09/21 03:50 MPV 7.6 fL (7.4-11.0) 07/09/21 03:50 Neut % (Auto) 90.7 % (42.0-75.0) H 07/09/21 03:50 Lymph % (Auto) 4.4 % (21.0-51.0) L 07/09/21 03:50 [place] % (Auto) 4.6 % (0.0-13.0) 07/09/21 03:50 Eos % (Auto) 0.0 % (0.9-2.9) L 07/09/21 03:50 Baso % (Auto) 0.3 % (0.2-1.0) 07/09/21 03:50 Neut # (Auto) 9.7 x10^3/uL (2.2-4.8) H 07/09/21 03:50 Lymph # (Auto) 0.5 X10^3/uL (1.3-2.9) L 07/09/21 03:50 [place] # (Auto) 0.5 x10^3/uL (0.3-0.8) 07/09/21 03:50 Eos # (Auto) 0.0 x10^3/uL (0.0-0.2) 07/09/21 03:50 Baso # (Auto) 0.0 X10^3/uL (0.0-0.1) 07/09/21 03:50 Absolute Nucleated RBC 0.0 /100WBC 07/09/21 03:50 Total Counted 100 07/09/21 03:50 Neutrophils % (Manual) 94 % (39-76) H 07/09/21 03:50 Lymphocytes % (Manual) 5 % (13-43) L 07/09/21 03:50 Monocytes % (Manual) 1 % (4-9) L 07/09/21 03:50 Plt Morphology Comment Normal (NORMAL) 07/09/21 03:50 RBC Morphology Normal (NORMAL) 07/09/21 03:50 PT 16.1 SECONDS (11.8-14.3) 07/08/21 15:18 INR Target Range - 07/08/21 15:18 INR 1.36 (0.8-1.3) H 07/08/21 15:18 APTT 57.0 SECONDS (22.9-36.5) H 07/09/21 18:23 PTT Comment - 07/09/21 18:23 D-Dimer 3.56 ug/ml (0.0-0.57) H* 07/08/21 07:36 Sample Site Rbra 07/08/21 10:00 ABG pH 7.510 (7.35-7.45) H 07/08/21 10:00 ABG pCO2 30.0 mmHg (35.0-45.0) L 07/08/21 10:00 ABG pO2 56.0 mmHg (80.0-100.0) L 07/08/21 10:00 ABG HCO3 23.9 mmol/L (22-26) 07/08/21 10:00 ABG O2 Saturation 92.0 % (90-100) 07/08/21 10:00 ABG Base Excess 1.6 mmol/L (-2.0-2.0) 07/08/21 10:00 Lonnie Test N/a 07/08/21 10:00 A-a Gradient 56.0 mmHg 07/08/21 10:00 FiO2 21.0 07/08/21 10:00 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,commercial pest control technician 07/08/21 10:00 Sodium 137 mmol/L (136-145) 07/09/21 03:50 Corrected Sodium 139 mmol/L (136-145) 07/09/21 03:50 Potassium 3.7 mmol/L (3.5-5.1) 07/09/21 03:50 Chloride 101 mmol/L (98-107) 07/09/21 03:50 Carbon Dioxide 24.8 mmol/L (21-32) 07/09/21 03:50 BUN 19 mg/dL (7-18) H 07/09/21 03:50 Creatinine 0.87 mg/dL (0.70-1.30) 07/09/21 03:50 Est GFR (MDRD) Af Amer > 60 (>60) 07/09/21 03:50 Est GFR (MDRD) Non-Af > 60 (>60) 07/09/21 03:50 Glucose 170 mg/dL (65-99) H 07/09/21 03:50 Lactic Acid 0.8 mmol/L (0.4-2.0) 07/08/21 15:18 Calcium 8.4 mg/dL (8.5-10.1) L 07/09/21 03:50 Corrected Calcium 9.5 mg/dL (8.5-10.1) 07/09/21 03:50 Magnesium 1.9 mg/dL (1.7-2.9) 07/09/21 03:50 Ferritin 466 ng/mL (26-388) H 07/08/21 07:30 Total Bilirubin 0.40 mg/dL (0.2-1.0) 07/09/21 03:50 AST 9 Units/L (15-37) L 07/09/21 03:50 ALT 11 Units/L (12-78) L 07/09/21 03:50 Alkaline Phosphatase 71 Units/L (46-116) 07/09/21 03:50 Creatine Kinase 25 Units/L (39-308) L 07/08/21 15:18 CK-MB (CK-2) < 1.0 ng/mL (0-4.0) 07/08/21 15:18 CK/CKMB % Calc 4.0 % (<4) 07/08/21 15:18 Troponin I High Sens 4.4 ng/L (4.0-60.0) 07/08/21 15:18 C-Reactive Protein 181.50 mg/L (0-3.0) H 07/08/21 07:30 B-Natriuretic Peptide 27.8 pg/mL (0-79) 07/08/21 07:30 Total Protein 7.3 g/dL (6.4-8.2) 07/09/21 03:50 Albumin 2.6 g/dL (3.4-5.0) L 07/09/21 03:50 Globulin 4.7 g/dL (2.5-4.5) H 07/09/21 03:50 Albumin/Globulin Ratio 0.6 Ratio (1.1-2.1) L 07/09/21 03:50 Specimen Type Clean catch urine 07/09/21 02:20 Urine Color Deborah (YELLOW) 07/09/21 02:20 Urine Appearance Clear (CLEAR) 07/09/21 02:20 Urine pH 5.0 (5.0 - 8.0) 07/09/21 02:20 Ur Specific [place] 1.025 (1.000-1.030) 07/09/21 02:20 Urine Protein 2+ (NEGATIVE) 07/09/21 02:20 Urine Glucose (UA) Negative (NEGATIVE) 07/09/21 02:20 Urine Ketones 2+ (NEGATIVE) 07/09/21 02:20 Urine Occult Blood 1+ (NEGATIVE) 07/09/21 02:20 Urine Nitrite Negative (NEGATIVE) 07/09/21 02:20 Urine Bilirubin Negative (NEGATIVE) 07/09/21 02:20 Urine Urobilinogen 1+ (NORMAL) 07/09/21 02:20 Ur Leukocyte Esterase Negative (NEGATIVE) 07/09/21 02:20 Urine RBC None seen /HPF (0-3) 07/09/21 02:20 Urine WBC 0-2 /HPF (0-5) 07/09/21 02:20 Ur Squamous Epith Cells Few /HPF (NEGATIVE) 07/09/21 02:20 Amorphous Sediment 2+ /HPF (NEGATIVE) 07/09/21 02:20 Urine Bacteria 2+ /HPF (NEGATIVE) 07/09/21 02:20 Ur Culture Indicated? Yes/culture set up 07/09/21 02:20 Influenza Type A Ag Negative-presumptive (NEGATIVE) 07/08/21 09:50 Influenza Type B Ag Negative-presumptive (NEGATIVE) 07/08/21 09:50 SARS CoV-2 RNA Rapid EST[place]PHAN[place] Negative (NEGATIVE) 07/08/21 08:08 SARS-CoV-2 Antigen Presumptive negative (NEGATIVE) 07/08/21 15:45 - Plan (1) Dyspnea Status: Acute Plan: Supplemental oxygen. Patient tolerating oxygen via nasal cannula. Cultures pending. IV abx and steroids (2) Acute respiratory distress Status: Acute (3) COVID-19 Status: Acute Plan: Remdesivir. See above (4) Pericardial effusion Status: Acute (5) Elevated d-dimer Status: Acute Plan: Heparin drip. Possible micro embolisms
[2021-07-10] MEDS: DUONEB 0.5 MG/3 MG (3 mL) NEB SCH ×4 (00:20→18:00)
[2021-07-10] MEDS ORDERED: NS 250 ML IV 250 ML IV ONE (02:51)
[2021-07-10] MEDS: HEPARIN SODIUM IN D5W 25,000 UNITS/500 ML BAG IV PRN ×2 (03:11→17:55)
[2021-07-10 04:52] LABS: ABG HCO3 25.5 mmol/L (22-26)
[2021-07-10 04:53] LABS: ABG ALLEN TEST POS
[2021-07-10] MEDS: SOLU-Medrol 40 MG VIAL IVP SCH ×3 (05:35→21:14)
[2021-07-10 06:36] LABS: BASOPHILS % (AUTO) 0.1 % (0.2-1.0); EOSINOPHILS % (AUTO) 0.1 % (0.9-2.9); HEMATOCRIT 36.8 % (42.0-54.0); HEMOGLOBIN 12.4 g/dL (13.5-18.0); LYMPHOCYTES # (AUTO) 0.5 X10^3/uL (1.3-2.9); LYMPHOCYTES % (AUTO) 3.4 % (21.0-51.0); MEAN CORPUSCULAR HGB CONC 33.6 g/dL (33.0-35.0); MEAN CORPUSCULAR VOLUME 86.3 fL (80.0-100.0); MEAN PLATELET VOLUME 8.4 fL (7.4-11.0); MONOCYTES # (AUTO) 0.6 x10^3/uL (0.3-0.8); MONOCYTES % (AUTO) 3.9 % (0.0-13.0); NEUTROPHILS # (AUTO) 14.8 x10^3/uL (2.2-4.8); NEUTROPHILS % (AUTO) 92.5 % (42.0-75.0); PLATELET COUNT 354 X10^3/uL (150.0-450.0); RED BLOOD COUNT 4.26 X10^6/uL (4.7-6.0)
[2021-07-10 07:00] LABS: ALANINE AMINOTRANSFERASE 12 Units/L (12-78); ALBUMIN 2.5 g/dL (3.4-5.0); ALKALINE PHOSPHATASE 67 Units/L (46-116); ASPARTATE AMINO TRANSFERASE 13 Units/L (15-37); BLOOD UREA NITROGEN 21 mg/dL (7-18); CALCIUM 8.2 mg/dL (8.5-10.1); CARBON DIOXIDE 22.3 mmol/L (21-32); CHLORIDE 103 mmol/L (98-107); COR CA(FOR HYPOALB) 9.4 mg/dL (8.5-10.1); COR NA(FOR HYPERGLY) 140 mmol/L (136-145); CREATININE 0.83 mg/dL (0.70-1.30); MAGNESIUM 2.4 mg/dL (1.7-2.9); SODIUM 138 mmol/L (136-145); TOTAL PROTEIN 7.1 g/dL (6.4-8.2); eGFR NON BLACK RACES > 60 (>60)
--- NOTE | 2021-07-10 07:12 | RAD ---
HISTORYFollow-up COVID-19STUDYChest AP [id number]/2022 chest x-ray and CTA chestFINDINGSThe heart remains enlarged. Patient has a known pericardial effusion (see CT chest 07/08/2021) no congestive heart failure is noted. No definite infiltrates are identified. A small left pleural effusion may be present. Bony thorax is unremarkable.IMPRESSIONCardiomegaly without congestive heart failureNo definite infiltratesSuspect small left pleural effusionElectronically signed by: RIVKA LAUGHLIN (Jul 10, 2021 07:11:22)
[2021-07-10] MEDS: BROVANA IN SCH ×2 (08:10→20:55)
[2021-07-10] MEDS: PULMICORT NEB TX 0.5 MG NEB SCH ×2 (08:10→20:55)
[2021-07-10 08:11] LABS: BAND NEUTROPHILS % 1 % (0-10)
[2021-07-10 08:12] LABS: PLATELET MORPHOLOGY COMMENT NORMAL (NORMAL)
[2021-07-10] MEDS: REMDESIVIR 100 MG in NS 100 ML IV + SPIKE MINIBAG* 120 ML IV SCH (09:22)
[2021-07-10] MEDS: ZITHROMAX TAB 250 MG PO SCH (09:22)
[2021-07-10] MEDS: K-DUR TAB 20 MEQ PO PRN (09:23)
[2021-07-10] MEDS ORDERED: HEPARIN SODIUM INJ 5000 UNITS IVP ONE (09:50)
[2021-07-10] MEDS: INVANZ INJ 1 GM VIAL 1 GM in NS 100 ML IV + SPIKE MINIBAG* 100 ML IV SCH (10:07)
[2021-07-10] MEDS: COLACE CAP 100 MG PO SCH (20:12)
--- NOTE | 2021-07-11 00:01 | PCM.PROG ---
Progress Note - Subjective Subjective: Patient is a 56 year old white male who was admitted due to resp distress. Despite negative COVID swabs we feel this patient is COVID positive due to clinical presentation. No change in condition at present. Patient is being treated with supplemental oxygen, Heparin drip, remdesivir, IV abx. Possible micro embolisms therefore continue Heparin drip. - Past Medical Family Social History Past Med/Fam/Surg Hx: No changes since H&P Allergies: Allergies No Known Drug Allergies Allergy (Verified 11/24/20 11:56) - Review of Systems ROS: No change since H&P - Vital Signs and I&O's Vital Signs: Temperature 97.9 F Pulse Rate [Left] 77 Pulse Rate 65 Respiratory Rate 22 Blood Pressure [Right Arm] 114/71 Blood Pressure 107/55 O2 Sat by Pulse Oximetry 90 Intake and Output: Intake & Output 07/07/21 07/08/21 07/09/21 07/10/21 23:59 23:59 23:59 23:59 Intake Total 992 / 992 3112 / 3112 2942.0 / 2942.0 Output Total 1800 / 1800 800 / 800 Balance 992 / 992 1312 / 1312 2142.0 / 2142.0 - Physical Exam Oriented: Normal, Time, Person, Place Eyes: Normal Ear: Normal Nose: Normal Throat: Normal Respiratory: Generalized, Diminished, Rhonchi Cardiovascular: Normal : Normal Auscultation: Bowel Sounds: Normal Tenderness: Normal Skin: Normal Musculoskeletal: Normal Psychiatric: Normal Mood Description: Calm Affect: Anxious Speech Pattern: Clear - Laboratory and Diagnostics Result Diagrams: 07/10/21 05:45 07/10/21 05:45 Labs: 07/09/21 02:20 Urine,Clean Catch Urine Culture - Preliminary 07/08/21 15:55 Urine,Clean Catch Urine Culture - Final 07/08/21 15:25 Blood Blood Culture - Preliminary 07/08/21 15:18 Blood Blood Culture - Preliminary Laboratory WBC 16.0 X10^3/uL (3.6-10.0) H 07/10/21 05:45 RBC 4.26 X10^6/uL (4.7-6.0) L 07/10/21 05:45 Hgb 12.4 g/dL (13.5-18.0) L 07/10/21 05:45 Hct 36.8 % (42.0-54.0) L 07/10/21 05:45 MCV 86.3 fL (80.0-100.0) 07/10/21 05:45 MCH 29.0 pg (27.0-34.0) 07/10/21 05:45 MCHC 33.6 g/dL (33.0-35.0) 07/10/21 05:45 RDW 13.0 % (11.6-16.5) 07/10/21 05:45 Plt Count 354 X10^3/uL (150.0-450.0) 07/10/21 05:45 Plt Count Comment Adequate (ADEQUATE) 07/10/21 05:45 MPV 8.4 fL (7.4-11.0) 07/10/21 05:45 Neut % (Auto) 92.5 % (42.0-75.0) H 07/10/21 05:45 Lymph % (Auto) 3.4 % (21.0-51.0) L 07/10/21 05:45 [place] % (Auto) 3.9 % (0.0-13.0) 07/10/21 05:45 Eos % (Auto) 0.1 % (0.9-2.9) L 07/10/21 05:45 Baso % (Auto) 0.1 % (0.2-1.0) L 07/10/21 05:45 Neut # (Auto) 14.8 x10^3/uL (2.2-4.8) H 07/10/21 05:45 Lymph # (Auto) 0.5 X10^3/uL (1.3-2.9) L 07/10/21 05:45 [place] # (Auto) 0.6 x10^3/uL (0.3-0.8) 07/10/21 05:45 Eos # (Auto) 0.0 x10^3/uL (0.0-0.2) 07/10/21 05:45 Baso # (Auto) 0.0 X10^3/uL (0.0-0.1) 07/10/21 05:45 Absolute Nucleated RBC 0.1 /100WBC 07/10/21 05:45 Total Counted 100 07/10/21 05:45 Neutrophils % (Manual) 90 % (39-76) H 07/10/21 05:45 Band Neutrophils % 1 % (0-10) 07/10/21 05:45 Lymphocytes % (Manual) 6 % (13-43) L 07/10/21 05:45 Monocytes % (Manual) 3 % (4-9) L 07/10/21 05:45 Plt Morphology Comment Normal (NORMAL) 07/10/21 05:45 RBC Morphology Normal (NORMAL) 07/10/21 05:45 PT 16.1 SECONDS (11.8-14.3) 07/08/21 15:18 INR Target Range - 07/08/21 15:18 INR 1.36 (0.8-1.3) H 07/08/21 15:18 APTT 104.2 SECONDS (22.9-36.5) H 07/10/21 16:02 PTT Comment - 07/10/21 16:02 D-Dimer 3.56 ug/ml (0.0-0.57) H* 07/08/21 07:36 Sample Site Lr 07/10/21 04:45 ABG pH 7.470 (7.35-7.45) H 07/10/21 04:45 ABG pCO2 35.0 mmHg (35.0-45.0) 07/10/21 04:45 ABG pO2 55.0 mmHg (80.0-100.0) L 07/10/21 04:45 ABG HCO3 25.5 mmol/L (22-26) 07/10/21 04:45 ABG O2 Saturation 90.0 % (90-100) 07/10/21 04:45 ABG Base Excess 2.0 mmol/L (-2.0-2.0) 07/10/21 04:45 Lonnie Test Pos 07/10/21 04:45 A-a Gradient 51.0 mmHg 07/10/21 04:45 FiO2 21.0 07/10/21 04:45 Blood Gas Comments Queta well ae 07/10/21 04:45 Sodium 138 mmol/L (136-145) 07/10/21 05:45 Corrected Sodium 140 mmol/L (136-145) 07/10/21 05:45 Potassium 3.6 mmol/L (3.5-5.1) 07/10/21 05:45 Chloride 103 mmol/L (98-107) 07/10/21 05:45 Carbon Dioxide 22.3 mmol/L (21-32) 07/10/21 05:45 BUN 21 mg/dL (7-18) H 07/10/21 05:45 Creatinine 0.83 mg/dL (0.70-1.30) 07/10/21 05:45 Est GFR (MDRD) Af Amer > 60 (>60) 07/10/21 05:45 Est GFR (MDRD) Non-Af > 60 (>60) 07/10/21 05:45 Glucose 170 mg/dL (65-99) H 07/10/21 05:45 Lactic Acid 0.8 mmol/L (0.4-2.0) 07/08/21 15:18 Calcium 8.2 mg/dL (8.5-10.1) L 07/10/21 05:45 Corrected Calcium 9.4 mg/dL (8.5-10.1) 07/10/21 05:45 Magnesium 2.4 mg/dL (1.7-2.9) 07/10/21 05:45 Ferritin 466 ng/mL (26-388) H 07/08/21 07:30 Total Bilirubin 0.50 mg/dL (0.2-1.0) 07/10/21 05:45 AST 13 Units/L (15-37) L 07/10/21 05:45 ALT 12 Units/L (12-78) 07/10/21 05:45 Alkaline Phosphatase 67 Units/L (46-116) 07/10/21 05:45 Creatine Kinase 25 Units/L (39-308) L 07/08/21 15:18 CK-MB (CK-2) < 1.0 ng/mL (0-4.0) 07/08/21 15:18 CK/CKMB % Calc 4.0 % (<4) 07/08/21 15:18 Troponin I High Sens 5.5 ng/L (4.0-60.0) 07/10/21 18:29 C-Reactive Protein 181.50 mg/L (0-3.0) H 07/08/21 07:30 B-Natriuretic Peptide 27.8 pg/mL (0-79) 07/08/21 07:30 Total Protein 7.1 g/dL (6.4-8.2) 07/10/21 05:45 Albumin 2.5 g/dL (3.4-5.0) L 07/10/21 05:45 Globulin 4.6 g/dL (2.5-4.5) H 07/10/21 05:45 Albumin/Globulin Ratio 0.5 Ratio (1.1-2.1) L 07/10/21 05:45 Specimen Type Clean catch urine 07/09/21 02:20 Urine Color Deborah (YELLOW) 07/09/21 02:20 Urine Appearance Clear (CLEAR) 07/09/21 02:20 Urine pH 5.0 (5.0 - 8.0) 07/09/21 02:20 Ur Specific [place] 1.025 (1.000-1.030) 07/09/21 02:20 Urine Protein 2+ (NEGATIVE) 07/09/21 02:20 Urine Glucose (UA) Negative (NEGATIVE) 07/09/21 02:20 Urine Ketones 2+ (NEGATIVE) 07/09/21 02:20 Urine Occult Blood 1+ (NEGATIVE) 07/09/21 02:20 Urine Nitrite Negative (NEGATIVE) 07/09/21 02:20 Urine Bilirubin Negative (NEGATIVE) 07/09/21 02:20 Urine Urobilinogen 1+ (NORMAL) 07/09/21 02:20 Ur Leukocyte Esterase Negative (NEGATIVE) 07/09/21 02:20 Urine RBC None seen /HPF (0-3) 07/09/21 02:20 Urine WBC 0-2 /HPF (0-5) 07/09/21 02:20 Ur Squamous Epith Cells Few /HPF (NEGATIVE) 07/09/21 02:20 Amorphous Sediment 2+ /HPF (NEGATIVE) 07/09/21 02:20 Urine Bacteria 2+ /HPF (NEGATIVE) 07/09/21 02:20 Ur Culture Indicated? Yes/culture set up 07/09/21 02:20 Influenza Type A Ag Negative-presumptive (NEGATIVE) 07/08/21 09:50 Influenza Type B Ag Negative-presumptive (NEGATIVE) 07/08/21 09:50 SARS CoV-2 RNA Rapid ESTEPHAN[place] Negative (NEGATIVE) 07/08/21 08:08 SARS-CoV-2 Antigen Presumptive negative (NEGATIVE) 07/08/21 15:45 - Plan (1) Dyspnea Status: Acute Plan: Supplemental oxygen. Patient tolerating oxygen via nasal cannula. Cultures pending. IV abx and steroids (2) Acute respiratory distress Status: Acute (3) COVID-19 Status: Acute Plan: Remdesivir. See above (4) Pericardial effusion Status: Acute (5) Elevated d-dimer Status: Acute Plan: Heparin drip. Possible micro embolisms (6) Viral pericarditis with pericardial effusion Status: Acute Plan: Pending transfer for further cardiac eval
[2021-07-11] MEDS: DUONEB 0.5 MG/3 MG (3 mL) NEB SCH ×4 (00:10→17:15)
[2021-07-11] MEDS: HEPARIN SODIUM IN D5W 25,000 UNITS/500 ML BAG IV PRN ×2 (05:35→19:50)
[2021-07-11] MEDS: SOLU-Medrol 40 MG VIAL IVP SCH ×2 (05:35→14:18)
[2021-07-11 06:19] LABS: BASOPHILS % (AUTO) 0.1 % (0.2-1.0); HEMATOCRIT 38.8 % (42.0-54.0); HEMOGLOBIN 12.9 g/dL (13.5-18.0); LYMPHOCYTES # (AUTO) 0.4 X10^3/uL (1.3-2.9); LYMPHOCYTES % (AUTO) 3.6 % (21.0-51.0); MEAN CORPUSCULAR HEMOGLOBIN 28.7 pg (27.0-34.0); MEAN CORPUSCULAR HGB CONC 33.2 g/dL (33.0-35.0); MEAN CORPUSCULAR VOLUME 86.3 fL (80.0-100.0); MEAN PLATELET VOLUME 8.4 fL (7.4-11.0); MONOCYTES # (AUTO) 0.5 x10^3/uL (0.3-0.8); MONOCYTES % (AUTO) 4.8 % (0.0-13.0); NEUTROPHILS # (AUTO) 10.2 x10^3/uL (2.2-4.8); NEUTROPHILS % (AUTO) 91.5 % (42.0-75.0); PLATELET COUNT 358 X10^3/uL (150.0-450.0); RED BLOOD COUNT 4.49 X10^6/uL (4.7-6.0); RED CELL DISTRIBUTION WIDTH 12.9 % (11.6-16.5); WHITE BLOOD COUNT 11.2 X10^3/uL (3.6-10.0)
[2021-07-11 06:50] LABS: ALANINE AMINOTRANSFERASE 15 Units/L (12-78); ALBUMIN 2.5 g/dL (3.4-5.0); ALKALINE PHOSPHATASE 66 Units/L (46-116); ASPARTATE AMINO TRANSFERASE 11 Units/L (15-37); BLOOD UREA NITROGEN 20 mg/dL (7-18); CALCIUM 8.3 mg/dL (8.5-10.1); CARBON DIOXIDE 26.5 mmol/L (21-32); CHLORIDE 106 mmol/L (98-107); COR CA(FOR HYPOALB) 9.5 mg/dL (8.5-10.1); COR NA(FOR HYPERGLY) 143 mmol/L (136-145); CREATININE 0.89 mg/dL (0.70-1.30); SODIUM 142 mmol/L (136-145); TOTAL PROTEIN 6.9 g/dL (6.4-8.2); eGFR NON BLACK RACES > 60 (>60)
[2021-07-11 07:53] LABS: PLATELET MORPHOLOGY COMMENT NORMAL (NORMAL)
[2021-07-11] MEDS: INVANZ INJ 1 GM VIAL 1 GM in NS 100 ML IV + SPIKE MINIBAG* 100 ML IV SCH (08:52)
[2021-07-11] MEDS: ZITHROMAX TAB 250 MG PO SCH (08:52)
[2021-07-11] MEDS: BROVANA IN SCH ×2 (09:26→21:12)
[2021-07-11] MEDS: PULMICORT NEB TX 0.5 MG NEB SCH ×2 (09:26→20:41)
--- NOTE | 2021-07-11 16:47 | PCM.PROG ---
Progress Note - Subjective Subjective: Patient is a 56 year old white male who was admitted due to resp distress. Despite negative COVID swabs we feel this patient is COVID positive due to clinical presentation. No change in condition at present. Patient is being treated with supplemental oxygen, Heparin drip, remdesivir (discontinued; received 3 days), IV abx. Possible micro embolisms therefore continue Heparin drip. Patient has viral pericarditis. Discussed condition and plan in detail with patient and fiance. - Past Medical Family Social History Past Med/Fam/Surg Hx: No changes since H&P Allergies: Allergies No Known Drug Allergies Allergy (Verified 11/24/20 11:56) - Review of Systems ROS: No change since H&P - Vital Signs and I&O's Vital Signs: Temperature 98.0 F Pulse Rate [Left] 77 Pulse Rate 87 Respiratory Rate 24 Blood Pressure [Right Arm] 114/71 Blood Pressure 122/72 O2 Sat by Pulse Oximetry 93 Intake and Output: Intake & Output 07/08/21 07/09/21 07/10/21 07/11/21 23:59 23:59 23:59 23:59 Intake Total 992 / 992 3112 / 3112 2942.0 / 2942.0 1698 / 1698 Output Total 1800 / 1800 800 / 800 900 / 900 Balance 992 / 992 1312 / 1312 2142.0 / 2142.0 798 / 798 - Physical Exam Oriented: Normal, Time, Person, Place Eyes: Normal Ear: Normal Nose: Normal Throat: Normal Respiratory: Generalized, Diminished, Rhonchi Cardiovascular: Normal : Normal Auscultation: Bowel Sounds: Normal Palpation: Normal Tenderness: Normal Skin: Normal Musculoskeletal: Normal Psychiatric: Normal Mood Description: Calm Affect: Anxious Speech Pattern: Clear, Appropriate - Laboratory and Diagnostics Result Diagrams: 07/11/21 05:35 07/11/21 05:35 Labs: 07/09/21 02:20 Urine,Clean Catch Urine Culture - Final 07/08/21 15:55 Urine,Clean Catch Urine Culture - Final 07/08/21 15:25 Blood Blood Culture - Preliminary 07/08/21 15:18 Blood Blood Culture - Preliminary Laboratory WBC 11.2 X10^3/uL (3.6-10.0) H 07/11/21 05:35 RBC 4.49 X10^6/uL (4.7-6.0) L 07/11/21 05:35 Hgb 12.9 g/dL (13.5-18.0) L 07/11/21 05:35 Hct 38.8 % (42.0-54.0) L 07/11/21 05:35 MCV 86.3 fL (80.0-100.0) 07/11/21 05:35 MCH 28.7 pg (27.0-34.0) 07/11/21 05:35 MCHC 33.2 g/dL (33.0-35.0) 07/11/21 05:35 RDW 12.9 % (11.6-16.5) 07/11/21 05:35 Plt Count 358 X10^3/uL (150.0-450.0) 07/11/21 05:35 Plt Count Comment Adequate (ADEQUATE) 07/11/21 05:35 MPV 8.4 fL (7.4-11.0) 07/11/21 05:35 Neut % (Auto) 91.5 % (42.0-75.0) H 07/11/21 05:35 Lymph % (Auto) 3.6 % (21.0-51.0) L 07/11/21 05:35 [place] % (Auto) 4.8 % (0.0-13.0) 07/11/21 05:35 Eos % (Auto) 0.0 % (0.9-2.9) L 07/11/21 05:35 Baso % (Auto) 0.1 % (0.2-1.0) L 07/11/21 05:35 Neut # (Auto) 10.2 x10^3/uL (2.2-4.8) H 07/11/21 05:35 Lymph # (Auto) 0.4 X10^3/uL (1.3-2.9) L 07/11/21 05:35 [place] # (Auto) 0.5 x10^3/uL (0.3-0.8) 07/11/21 05:35 Eos # (Auto) 0.0 x10^3/uL (0.0-0.2) 07/11/21 05:35 Baso # (Auto) 0.0 X10^3/uL (0.0-0.1) 07/11/21 05:35 Absolute Nucleated RBC 0.1 /100WBC 07/11/21 05:35 Total Counted 100 07/11/21 05:35 Neutrophils % (Manual) 91 % (39-76) H 07/11/21 05:35 Band Neutrophils % 1 % (0-10) 07/10/21 05:45 Lymphocytes % (Manual) 4 % (13-43) L 07/11/21 05:35 Monocytes % (Manual) 5 % (4-9) 07/11/21 05:35 Plt Morphology Comment Normal (NORMAL) 07/11/21 05:35 RBC Morphology Normal (NORMAL) 07/11/21 05:35 PT 16.1 SECONDS (11.8-14.3) 07/08/21 15:18 INR Target Range - 07/08/21 15:18 INR 1.36 (0.8-1.3) H 07/08/21 15:18 APTT 68.6 SECONDS (22.9-36.5) H 07/11/21 12:09 PTT Comment - 07/11/21 12:09 D-Dimer 3.56 ug/ml (0.0-0.57) H* 07/08/21 07:36 Sample Site Lr 07/10/21 04:45 ABG pH 7.470 (7.35-7.45) H 07/10/21 04:45 ABG pCO2 35.0 mmHg (35.0-45.0) 07/10/21 04:45 ABG pO2 55.0 mmHg (80.0-100.0) L 07/10/21 04:45 ABG HCO3 25.5 mmol/L (22-26) 07/10/21 04:45 ABG O2 Saturation 90.0 % (90-100) 07/10/21 04:45 ABG Base Excess 2.0 mmol/L (-2.0-2.0) 07/10/21 04:45 Lonnie Test Pos 07/10/21 04:45 A-a Gradient 51.0 mmHg 07/10/21 04:45 FiO2 21.0 07/10/21 04:45 Blood Gas Comments Queta well ae 07/10/21 04:45 Sodium 142 mmol/L (136-145) 07/11/21 05:35 Corrected Sodium 143 mmol/L (136-145) 07/11/21 05:35 Potassium 4.1 mmol/L (3.5-5.1) 07/11/21 05:35 Chloride 106 mmol/L (98-107) 07/11/21 05:35 Carbon Dioxide 26.5 mmol/L (21-32) 07/11/21 05:35 BUN 20 mg/dL (7-18) H 07/11/21 05:35 Creatinine 0.89 mg/dL (0.70-1.30) 07/11/21 05:35 Est GFR (MDRD) Af Amer > 60 (>60) 07/11/21 05:35 Est GFR (MDRD) Non-Af > 60 (>60) 07/11/21 05:35 Glucose 159 mg/dL (65-99) H 07/11/21 05:35 Lactic Acid 0.8 mmol/L (0.4-2.0) 07/08/21 15:18 Calcium 8.3 mg/dL (8.5-10.1) L 07/11/21 05:35 Corrected Calcium 9.5 mg/dL (8.5-10.1) 07/11/21 05:35 Magnesium 2.4 mg/dL (1.7-2.9) 07/10/21 05:45 Ferritin 466 ng/mL (26-388) H 07/08/21 07:30 Total Bilirubin 0.30 mg/dL (0.2-1.0) 07/11/21 05:35 AST 11 Units/L (15-37) L 07/11/21 05:35 ALT 15 Units/L (12-78) 07/11/21 05:35 Alkaline Phosphatase 66 Units/L (46-116) 07/11/21 05:35 Creatine Kinase 25 Units/L (39-308) L 07/08/21 15:18 CK-MB (CK-2) < 1.0 ng/mL (0-4.0) 07/08/21 15:18 CK/CKMB % Calc 4.0 % (<4) 07/08/21 15:18 Troponin I High Sens 5.5 ng/L (4.0-60.0) 07/10/21 18:29 C-Reactive Protein 181.50 mg/L (0-3.0) H 07/08/21 07:30 B-Natriuretic Peptide 27.8 pg/mL (0-79) 07/08/21 07:30 Total Protein 6.9 g/dL (6.4-8.2) 07/11/21 05:35 Albumin 2.5 g/dL (3.4-5.0) L 07/11/21 05:35 Globulin 4.4 g/dL (2.5-4.5) 07/11/21 05:35 Albumin/Globulin Ratio 0.6 Ratio (1.1-2.1) L 07/11/21 05:35 Specimen Type Clean catch urine 07/09/21 02:20 Urine Color Deborah (YELLOW) 07/09/21 02:20 Urine Appearance Clear (CLEAR) 07/09/21 02:20 Urine pH 5.0 (5.0 - 8.0) 07/09/21 02:20 Ur Specific [place] 1.025 (1.000-1.030) 07/09/21 02:20 Urine Protein 2+ (NEGATIVE) 07/09/21 02:20 Urine Glucose (UA) Negative (NEGATIVE) 07/09/21 02:20 Urine Ketones 2+ (NEGATIVE) 07/09/21 02:20 Urine Occult Blood 1+ (NEGATIVE) 07/09/21 02:20 Urine Nitrite Negative (NEGATIVE) 07/09/21 02:20 Urine Bilirubin Negative (NEGATIVE) 07/09/21 02:20 Urine Urobilinogen 1+ (NORMAL) 07/09/21 02:20 Ur Leukocyte Esterase Negative (NEGATIVE) 07/09/21 02:20 Urine RBC None seen /HPF (0-3) 07/09/21 02:20 Urine WBC 0-2 /HPF (0-5) 07/09/21 02:20 Ur Squamous Epith Cells Few /HPF (NEGATIVE) 07/09/21 02:20 Amorphous Sediment 2+ /HPF (NEGATIVE) 07/09/21 02:20 Urine Bacteria 2+ /HPF (NEGATIVE) 07/09/21 02:20 Ur Culture Indicated? Yes/culture set up 07/09/21 02:20 Influenza Type A Ag Negative-presumptive (NEGATIVE) 07/08/21 09:50 Influenza Type B Ag Negative-presumptive (NEGATIVE) 07/08/21 09:50 SARS CoV-2 RNA Rapid [place] Negative (NEGATIVE) 07/08/21 08:08 SARS-CoV-2 Antigen Presumptive negative (NEGATIVE) 07/08/21 15:45 - Plan (1) Dyspnea Status: Acute Plan: Supplemental oxygen. Patient tolerating oxygen via nasal cannula. Cultures pending. IV abx and steroids (2) Acute respiratory distress Status: Acute (3) COVID-19 Status: Acute Plan: Remdesivir. See above (4) Pericardial effusion Status: Acute (5) Elevated d-dimer Status: Acute Plan: Heparin drip. Possible micro embolisms (6) Viral pericarditis with pericardial effusion Status: Acute Plan: Pending transfer for further cardiac eval
[2021-07-11] MEDS: COLACE CAP 100 MG PO SCH (20:04)
[2021-07-12] MEDS: DUONEB 0.5 MG/3 MG (3 mL) NEB SCH ×4 (00:10→18:10)
[2021-07-12 05:11] LABS: BASOPHILS % (AUTO) 0.4 % (0.2-1.0); EOSINOPHILS % (AUTO) 0.4 % (0.9-2.9); HEMATOCRIT 37.9 % (42.0-54.0); HEMOGLOBIN 12.8 g/dL (13.5-18.0); LYMPHOCYTES # (AUTO) 0.6 X10^3/uL (1.3-2.9); LYMPHOCYTES % (AUTO) 5.7 % (21.0-51.0); MEAN CORPUSCULAR HEMOGLOBIN 29.1 pg (27.0-34.0); MEAN CORPUSCULAR HGB CONC 33.7 g/dL (33.0-35.0); MEAN CORPUSCULAR VOLUME 86.2 fL (80.0-100.0); MONOCYTES # (AUTO) 0.7 x10^3/uL (0.3-0.8); MONOCYTES % (AUTO) 6.8 % (0.0-13.0); NEUTROPHILS # (AUTO) 8.7 x10^3/uL (2.2-4.8); NEUTROPHILS % (AUTO) 86.7 % (42.0-75.0); PLATELET COUNT 357 X10^3/uL (150.0-450.0); RED BLOOD COUNT 4.39 X10^6/uL (4.7-6.0); RED CELL DISTRIBUTION WIDTH 13.1 % (11.6-16.5); WHITE BLOOD COUNT 10.1 X10^3/uL (3.6-10.0)
[2021-07-12 05:27] LABS: ALANINE AMINOTRANSFERASE 11 Units/L (12-78); ALBUMIN 2.2 g/dL (3.4-5.0); ALKALINE PHOSPHATASE 57 Units/L (46-116); ASPARTATE AMINO TRANSFERASE 9 Units/L (15-37); BLOOD UREA NITROGEN 17 mg/dL (7-18); CALCIUM 7.8 mg/dL (8.5-10.1); CARBON DIOXIDE 24.9 mmol/L (21-32); CHLORIDE 106 mmol/L (98-107); COR CA(FOR HYPOALB) 9.2 mg/dL (8.5-10.1); COR NA(FOR HYPERGLY) 140 mmol/L (136-145); CREATININE 0.76 mg/dL (0.70-1.30); SODIUM 139 mmol/L (136-145); TOTAL PROTEIN 6.1 g/dL (6.4-8.2); eGFR NON BLACK RACES > 60 (>60)
[2021-07-12 05:42] LABS: BAND NEUTROPHILS % 2 % (0-10); PLATELET MORPHOLOGY COMMENT NORMAL (NORMAL)
[2021-07-12 05:43] LABS: ABG ALLEN TEST POS; ABG BASE EXCESS 1.9 mmol/L (-2.0-2.0); ABG HCO3 25.6 mmol/L (22-26)
--- NOTE | 2021-07-12 07:09 | RAD ---
HISTORYPLEURAL EFFUSIONSTUDYCHEST, 1 [id number]/12/2022.TECHNIQUEAP view of the chestFINDINGSThe cardiac silhouette is stably enlarged. Mediastinal contours appear stable. There is blunting of the costophrenic sulci. Associated bibasilar opacities likely atelectasis. No pneumothorax.IMPRESSIONKnown pericardial effusion. Small pleural effusions with associated opacities likely atelectasis.Electronically signed by: Srinivasa Childress (Jul 12, 2021 07:07:30)
[2021-07-12] MEDS: BROVANA IN SCH ×2 (09:35→21:46)
[2021-07-12] MEDS: PULMICORT NEB TX 0.5 MG NEB SCH ×2 (09:35→21:46)
[2021-07-12] MEDS: INVANZ INJ 1 GM VIAL 1 GM in NS 100 ML IV + SPIKE MINIBAG* 100 ML IV SCH (09:58)
[2021-07-12] MEDS: ZITHROMAX TAB 250 MG PO SCH (09:59)
[2021-07-12] MEDS: HEPARIN SODIUM IN D5W 25,000 UNITS/500 ML BAG IV PRN (10:03)
[2021-07-12] MEDS ORDERED: HEPARIN SODIUM INJ 5000 UNITS IVP ONE (15:20)
[2021-07-13] MEDS: COLACE CAP 100 MG PO SCH
[2021-07-13] MEDS: HEPARIN SODIUM IN D5W 25,000 UNITS/500 ML BAG IV PRN (02:04)
--- NOTE | 2021-07-13 02:14 | PCM.PROG ---
Progress Note - Progress Note for Day of Date of Exam: 07/12/21 - Subjective Subjective: Patient is a 56 year old white male who was admitted due to resp distress. Despite negative COVID swabs we feel this patient is COVID positive or has been affected by COVID in the recent past due to clinical presentation. No change in condition at present from. Patient is being treated with supplemental oxygen prn, Heparin drip, remdesivir (discontinued; received 3 days), IV abx and steroids. Possible micro embolisms therefore continue Heparin drip. Patient has viral pericarditis. Discussed condition and plan in detail with patient and fiance. Patient is pending transfer; however no beds avaiable at [place], [facility], [facility], [facility], [facility] or [facility]. Patien t's hypoxia has improved. - Past Medical Family Social History Past Med/Fam/Surg Hx: No changes since H&P Allergies: Allergies No Known Drug Allergies Allergy (Verified 11/24/20 11:56) - Review of Systems ROS: No change since H&P - Vital Signs and I&O's Vital Signs: Temperature 97.9 F Pulse Rate [Left] 77 Pulse Rate 53 Respiratory Rate 17 Blood Pressure [Right Arm] 114/71 Blood Pressure 119/68 O2 Sat by Pulse Oximetry 94 Intake and Output: Intake & Output 07/10/21 07/11/21 07/12/21 07/13/21 23:59 23:59 23:59 23:59 Intake Total 2942.0 / 2942.0 3126 / 3126 2400 / 2400 150 / 150 Output Total 800 / 800 1200 / 1200 1250 / 1250 Balance 2142.0 / 2142.0 1926 / 1926 1150 / 1150 150 / 150 - Physical Exam Oriented: Normal, Time, Person, Place Eyes: Normal Ear: Normal Nose: Normal Throat: Normal Respiratory: Generalized, Diminished, Rhonchi Cardiovascular: Normal : Normal Auscultation: Bowel Sounds: Normal Palpation: Normal Tenderness: Normal Skin: Normal Musculoskeletal: Normal Psychiatric: Normal Mood Description: Calm Affect: Anxious Speech Pattern: Clear - Laboratory and Diagnostics Result Diagrams: 07/12/21 04:55 07/12/21 04:55 Labs: 07/09/21 02:20 Urine,Clean Catch Urine Culture - Final 07/08/21 15:55 Urine,Clean Catch Urine Culture - Final 07/08/21 15:25 Blood Blood Culture - Preliminary 07/08/21 15:18 Blood Blood Culture - Preliminary Laboratory WBC 10.1 X10^3/uL (3.6-10.0) H 07/12/21 04:55 RBC 4.39 X10^6/uL (4.7-6.0) L 07/12/21 04:55 Hgb 12.8 g/dL (13.5-18.0) L 07/12/21 04:55 Hct 37.9 % (42.0-54.0) L 07/12/21 04:55 MCV 86.2 fL (80.0-100.0) 07/12/21 04:55 MCH 29.1 pg (27.0-34.0) 07/12/21 04:55 MCHC 33.7 g/dL (33.0-35.0) 07/12/21 04:55 RDW 13.1 % (11.6-16.5) 07/12/21 04:55 Plt Count 357 X10^3/uL (150.0-450.0) 07/12/21 04:55 Plt Count Comment Adequate (ADEQUATE) 07/12/21 04:55 MPV 8.0 fL (7.4-11.0) 07/12/21 04:55 Neut % (Auto) 86.7 % (42.0-75.0) H 07/12/21 04:55 Lymph % (Auto) 5.7 % (21.0-51.0) L 07/12/21 04:55 [place] % (Auto) 6.8 % (0.0-13.0) 07/12/21 04:55 Eos % (Auto) 0.4 % (0.9-2.9) L 07/12/21 04:55 Baso % (Auto) 0.4 % (0.2-1.0) 07/12/21 04:55 Neut # (Auto) 8.7 x10^3/uL (2.2-4.8) H 07/12/21 04:55 Lymph # (Auto) 0.6 X10^3/uL (1.3-2.9) L 07/12/21 04:55 [place] # (Auto) 0.7 x10^3/uL (0.3-0.8) 07/12/21 04:55 Eos # (Auto) 0.0 x10^3/uL (0.0-0.2) 07/12/21 04:55 Baso # (Auto) 0.0 X10^3/uL (0.0-0.1) 07/12/21 04:55 Absolute Nucleated RBC 0.0 /100WBC 07/12/21 04:55 Total Counted 100 07/12/21 04:55 Neutrophils % (Manual) 84 % (39-76) H 07/12/21 04:55 Band Neutrophils % 2 % (0-10) 07/12/21 04:55 Lymphocytes % (Manual) 7 % (13-43) L 07/12/21 04:55 Monocytes % (Manual) 7 % (4-9) 07/12/21 04:55 Plt Morphology Comment Normal (NORMAL) 07/12/21 04:55 RBC Morphology Normal (NORMAL) 07/12/21 04:55 PT 16.1 SECONDS (11.8-14.3) 07/08/21 15:18 INR Target Range - 07/08/21 15:18 INR 1.36 (0.8-1.3) H 07/08/21 15:18 APTT 228.4 SECONDS (22.9-36.5) H* 07/12/21 20:54 PTT Comment - 07/12/21 20:54 D-Dimer 3.56 ug/ml (0.0-0.57) H* 07/08/21 07:36 Sample Site Rrad 07/12/21 05:40 ABG pH 7.460 (7.35-7.45) H 07/12/21 05:40 ABG pCO2 36.0 mmHg (35.0-45.0) 07/12/21 05:40 ABG pO2 68.0 mmHg (80.0-100.0) L 07/12/21 05:40 ABG HCO3 25.6 mmol/L (22-26) 07/12/21 05:40 ABG O2 Saturation 94.0 % (90-100) 07/12/21 05:40 ABG Base Excess 1.9 mmol/L (-2.0-2.0) 07/12/21 05:40 Lonnie Test Pos 07/12/21 05:40 A-a Gradient 37.0 mmHg 07/12/21 05:40 FiO2 21.0 07/12/21 05:40 Blood Gas Comments Queta well ms/kh 07/12/21 05:40 Sodium 139 mmol/L (136-145) 07/12/21 04:55 Corrected Sodium 140 mmol/L (136-145) 07/12/21 04:55 Potassium 4.0 mmol/L (3.5-5.1) 07/12/21 04:55 Chloride 106 mmol/L (98-107) 07/12/21 04:55 Carbon Dioxide 24.9 mmol/L (21-32) 07/12/21 04:55 BUN 17 mg/dL (7-18) 07/12/21 04:55 Creatinine 0.76 mg/dL (0.70-1.30) 07/12/21 04:55 Est GFR (MDRD) Af Amer > 60 (>60) 07/12/21 04:55 Est GFR (MDRD) Non-Af > 60 (>60) 07/12/21 04:55 Glucose 162 mg/dL (65-99) H 07/12/21 04:55 Lactic Acid 0.8 mmol/L (0.4-2.0) 07/08/21 15:18 Calcium 7.8 mg/dL (8.5-10.1) L 07/12/21 04:55 Corrected Calcium 9.2 mg/dL (8.5-10.1) 07/12/21 04:55 Magnesium 2.4 mg/dL (1.7-2.9) 07/10/21 05:45 Ferritin 466 ng/mL (26-388) H 07/08/21 07:30 Total Bilirubin 0.20 mg/dL (0.2-1.0) 07/12/21 04:55 AST 9 Units/L (15-37) L 07/12/21 04:55 ALT 11 Units/L (12-78) L 07/12/21 04:55 Alkaline Phosphatase 57 Units/L (46-116) 07/12/21 04:55 Creatine Kinase 25 Units/L (39-308) L 07/08/21 15:18 CK-MB (CK-2) < 1.0 ng/mL (0-4.0) 07/08/21 15:18 CK/CKMB % Calc 4.0 % (<4) 07/08/21 15:18 Troponin I High Sens 5.5 ng/L (4.0-60.0) 07/10/21 18:29 C-Reactive Protein 181.50 mg/L (0-3.0) H 07/08/21 07:30 B-Natriuretic Peptide 27.8 pg/mL (0-79) 07/08/21 07:30 Total Protein 6.1 g/dL (6.4-8.2) L 07/12/21 04:55 Albumin 2.2 g/dL (3.4-5.0) L 07/12/21 04:55 Globulin 3.9 g/dL (2.5-4.5) 07/12/21 04:55 Albumin/Globulin Ratio 0.6 Ratio (1.1-2.1) L 07/12/21 04:55 Specimen Type Clean catch urine 07/09/21 02:20 Urine Color Deborah (YELLOW) 07/09/21 02:20 Urine Appearance Clear (CLEAR) 07/09/21 02:20 Urine pH 5.0 (5.0 - 8.0) 07/09/21 02:20 Ur Specific [place] 1.025 (1.000-1.030) 07/09/21 02:20 Urine Protein 2+ (NEGATIVE) 07/09/21 02:20 Urine Glucose (UA) Negative (NEGATIVE) 07/09/21 02:20 Urine Ketones 2+ (NEGATIVE) 07/09/21 02:20 Urine Occult Blood 1+ (NEGATIVE) 07/09/21 02:20 Urine Nitrite Negative (NEGATIVE) 07/09/21 02:20 Urine Bilirubin Negative (NEGATIVE) 07/09/21 02:20 Urine Urobilinogen 1+ (NORMAL) 07/09/21 02:20 Ur Leukocyte Esterase Negative (NEGATIVE) 07/09/21 02:20 Urine RBC None seen /HPF (0-3) 07/09/21 02:20 Urine WBC 0-2 /HPF (0-5) 07/09/21 02:20 Ur Squamous Epith Cells Few /HPF (NEGATIVE) 07/09/21 02:20 Amorphous Sediment 2+ /HPF (NEGATIVE) 07/09/21 02:20 Urine Bacteria 2+ /HPF (NEGATIVE) 07/09/21 02:20 Ur Culture Indicated? Yes/culture set up 07/09/21 02:20 Influenza Type A Ag Negative-presumptive (NEGATIVE) 07/08/21 09:50 Influenza Type B Ag Negative-presumptive (NEGATIVE) 07/08/21 09:50 SARS CoV-2 RNA Rapid ESTEPHANIA Negative (NEGATIVE) 07/08/21 08:08 SARS-CoV-2 Antigen Presumptive negative (NEGATIVE) 07/08/21 15:45 Special/Misc Test See scanned report 07/08/21 15:45 - Plan (1) Dyspnea Status: Acute Plan: Supplemental oxygen. Patient tolerating oxygen via nasal cannula. Cultures negative. IV abx and steroids (2) Acute respiratory distress Status: Acute Plan: Improved (3) COVID-19 Status: Acute Plan: Remdesivir x 3 days. See above (4) Pericardial effusion Status: Acute Plan: Trend CXR and ABG. Improving (5) Elevated d-dimer Status: Acute Plan: Heparin drip. Possible micro embolisms (6) Viral pericarditis with pericardial effusion Status: Acute Plan: Pending transfer for further cardiac eval (7) Chest pain Status: Acute Plan: Pending transfer
[2021-07-13 05:33] LABS: ABG ALLEN TEST POS; ABG BASE EXCESS 3.9 mmol/L (-2.0-2.0); ABG HCO3 27.7 mmol/L (22-26)
[2021-07-13] MEDS: DUONEB 0.5 MG/3 MG (3 mL) NEB SCH ×4 (05:55→17:16)
[2021-07-13 06:08] LABS: BASOPHILS % (AUTO) 0.3 % (0.2-1.0); EOSINOPHILS # (AUTO) 0.1 x10^3/uL (0.0-0.2); EOSINOPHILS % (AUTO) 0.9 % (0.9-2.9); HEMATOCRIT 39.5 % (42.0-54.0); HEMOGLOBIN 13.2 g/dL (13.5-18.0); LYMPHOCYTES # (AUTO) 1.9 X10^3/uL (1.3-2.9); LYMPHOCYTES % (AUTO) 18.3 % (21.0-51.0); MEAN CORPUSCULAR HEMOGLOBIN 28.9 pg (27.0-34.0); MEAN CORPUSCULAR HGB CONC 33.4 g/dL (33.0-35.0); MEAN CORPUSCULAR VOLUME 86.4 fL (80.0-100.0); MONOCYTES % (AUTO) 9.4 % (0.0-13.0); NEUTROPHILS # (AUTO) 7.3 x10^3/uL (2.2-4.8); NEUTROPHILS % (AUTO) 71.1 % (42.0-75.0); PLATELET COUNT 340 X10^3/uL (150.0-450.0); RED BLOOD COUNT 4.57 X10^6/uL (4.7-6.0); RED CELL DISTRIBUTION WIDTH 13.3 % (11.6-16.5); WHITE BLOOD COUNT 10.3 X10^3/uL (3.6-10.0)
[2021-07-13 06:17] LABS: ALANINE AMINOTRANSFERASE 13 Units/L (12-78); ALBUMIN 2.1 g/dL (3.4-5.0); ALKALINE PHOSPHATASE 57 Units/L (46-116); ASPARTATE AMINO TRANSFERASE 10 Units/L (15-37); BLOOD UREA NITROGEN 14 mg/dL (7-18); CALCIUM 7.7 mg/dL (8.5-10.1); CHLORIDE 107 mmol/L (98-107); COR CA(FOR HYPOALB) 9.2 mg/dL (8.5-10.1); CREATININE 0.83 mg/dL (0.70-1.30); SODIUM 142 mmol/L (136-145); TOTAL PROTEIN 5.7 g/dL (6.4-8.2); eGFR NON BLACK RACES > 60 (>60)
[2021-07-13 06:42] LABS: BAND NEUTROPHILS % 2 % (0-10)
[2021-07-13 06:43] LABS: PLATELET MORPHOLOGY COMMENT NORMAL (NORMAL)
--- NOTE | 2021-07-13 06:55 | RAD ---
HISTORYHypoxiaSTUDYAP chestCOMPARISOND.[facility] [id number] appearance of mild cardiomegaly. The right lung is essentially clear. There is an indistinct area of increased retrocardiac density suggesting infiltrate/atelectasis in the left lower lobe. The left upper lobe is clear.IMPRESSIONNo significant change. Suspect inflammatory infiltrate/atelectasis in the left lower lobe.Electronically signed by: DOMI ELIAS (Jul 13, 2021 06:51:55)
[2021-07-13] MEDS: BROVANA IN SCH ×2 (09:40→20:57)
[2021-07-13] MEDS: PULMICORT NEB TX 0.5 MG NEB SCH ×2 (09:40→20:57)
[2021-07-13] MEDS: ZITHROMAX TAB 250 MG PO SCH (12:36)
[2021-07-13] MEDS: INVANZ INJ 1 GM VIAL 1 GM in NS 100 ML IV + SPIKE MINIBAG* 100 ML IV SCH (12:36)
[2021-07-13] MEDS: COLCRYS TAB 0.6 MG PO SCH (13:08)
[2021-07-13] MEDS: MOTRIN TAB 800 MG PO SCH ×2 (14:50→21:35)
[2021-07-14] MEDS: DUONEB 0.5 MG/3 MG (3 mL) NEB SCH ×2 (00:05→05:38)
[2021-07-14] MEDS: MOTRIN TAB 800 MG PO SCH (05:05)
[2021-07-14 05:32] LABS: BASOPHILS % (AUTO) 0.4 % (0.2-1.0); EOSINOPHILS # (AUTO) 0.3 x10^3/uL (0.0-0.2); EOSINOPHILS % (AUTO) 3.7 % (0.9-2.9); HEMATOCRIT 40.1 % (42.0-54.0); HEMOGLOBIN 13.4 g/dL (13.5-18.0); LYMPHOCYTES # (AUTO) 1.5 X10^3/uL (1.3-2.9); LYMPHOCYTES % (AUTO) 18.9 % (21.0-51.0); MEAN CORPUSCULAR HEMOGLOBIN 29.1 pg (27.0-34.0); MEAN CORPUSCULAR HGB CONC 33.6 g/dL (33.0-35.0); MEAN CORPUSCULAR VOLUME 86.7 fL (80.0-100.0); MEAN PLATELET VOLUME 7.7 fL (7.4-11.0); MONOCYTES # (AUTO) 0.7 x10^3/uL (0.3-0.8); MONOCYTES % (AUTO) 8.5 % (0.0-13.0); NEUTROPHILS # (AUTO) 5.5 x10^3/uL (2.2-4.8); NEUTROPHILS % (AUTO) 68.5 % (42.0-75.0); PLATELET COUNT 333 X10^3/uL (150.0-450.0); RED BLOOD COUNT 4.62 X10^6/uL (4.7-6.0); RED CELL DISTRIBUTION WIDTH 13.7 % (11.6-16.5)
[2021-07-14 05:35] LABS: ALANINE AMINOTRANSFERASE 15 Units/L (12-78); ALBUMIN 2.2 g/dL (3.4-5.0); ALKALINE PHOSPHATASE 61 Units/L (46-116); ASPARTATE AMINO TRANSFERASE 11 Units/L (15-37); BLOOD UREA NITROGEN 16 mg/dL (7-18); CALCIUM 7.8 mg/dL (8.5-10.1); CARBON DIOXIDE 26.9 mmol/L (21-32); CHLORIDE 109 mmol/L (98-107); COR CA(FOR HYPOALB) 9.2 mg/dL (8.5-10.1); CREATININE 0.94 mg/dL (0.70-1.30); SODIUM 143 mmol/L (136-145); TOTAL PROTEIN 5.7 g/dL (6.4-8.2); eGFR NON BLACK RACES > 60 (>60)
[2021-07-14 06:14] LABS: PLATELET MORPHOLOGY COMMENT NORMAL (NORMAL)
[2021-07-14] MEDS: BROVANA IN SCH (08:30)
[2021-07-14] MEDS: PULMICORT NEB TX 0.5 MG NEB SCH (08:30)
[2021-07-14] MEDS: COLCRYS TAB 0.6 MG PO SCH (09:20)
[2021-07-14] MEDS: ZITHROMAX TAB 250 MG PO SCH (09:20)
[2021-07-14] MEDS: INVANZ INJ 1 GM VIAL 1 GM in NS 100 ML IV + SPIKE MINIBAG* 100 ML IV SCH (09:20)
[2021-07-14 10:03] VITALS: BP 110/69
== END 2021-07-14 10:38 | disposition home or self-care (01) | DRG 316 ==
LOC: ER 07:06 → ICU 17:50
PROVIDERS: ADMIT Internal Medicine; ATTEND Internal Medicine
DX: I31.3 Pericardial effusion (noninflammatory); R06.02 Shortness of breath; R06.03 Acute respiratory distress; R26.89 Other abnormalities of gait and mobility; R79.82 Elevated C-reactive protein (CRP); Z20.822 Contact with and (suspected) exposure to COVID-19; I30.1 Infective pericarditis; R79.89 Other specified abnormal findings of blood chemistry; R79.1 Abnormal coagulation profile

== ENCOUNTER 2021-08-17 10:18 | Observation (INO) ==
[2021-08-17] MEDS ORDERED: TORADOL 30 MG VIAL IVP ONE (10:47)
[2021-08-17] MEDS ORDERED: TORADOL 30 MG VIAL ONE (10:49)
--- NOTE | 2021-08-17 10:59 | DR.CP ---
HPI Time Seen Time Seen by Provider: 08/17/21 10:40 PCP Primary Care Physician: DR CHRISTY Complaint Chief Complaint Doctor Comments: 56 y/o male presents with chest pain over the past 3 days. Was diagnosed with pericarditis last month, was doing better. Pain has returned, sharp across the chest. Radiated to the neck this am. + worse with breathing, laying flat, moving. Better remaining still. + associated with palpitations, dyspnea, non productive cough. No fever, chills. Chief Complaint:: PT C/O 3 DAYS OF PAIN ACROSS THE FRONT OF HIS CHEST THAT IS WORSE WITH TAKING A DEEP BREATH. PT C/O INCREASING SHORNTESS OF BREATH WITH DRY COUGH. COVID-19 Coronavirus risk:travel/contact w/high risk person: No Has patient experienced Coronavirus symptoms: No Reviewed Nurses Notes Review: Yes Source History Provided: Patient Mode of Arrival Mode of Arrival: Ambulatory Timing Onset of Chief Complaint: 08/15/21 Came on: Gradually Pain: Present Now Duration Duration: Since Onset Location Chest Pain Radiation Location: None Associated Signs and Symptoms Associated Signs and Symptoms: Shortness of Breath PMH PMH Past Medical History: Yes Past Medical History Comment: PERICARDITIS Past Surgical History: Yes Surgical History: Appendectomy and Ortho Surgery Past Surgical History Comment: HERNIA REPAIR Family History History of Family Medical Conditions: Yes Family Medical History: [place], Coronary Artery Disease and Hypertension Social History Does patient currently use any type of tobacco product: No Have you used tobacco products in the last 12 months: No Type of Tobacco Use: None Does any household member use tobacco: No Alcohol Use: None Do you use any recreational Drugs:: No Lives With: Family Lives Where: Home Travel Risk Coronavirus risk:travel/contact w/high risk person: No Has patient experienced Coronavirus symptoms: No Infectious screening In the last 2 months have you had wt loss of >10#?: NO Have you had fever, night sweats or hemotysis?: No Have you traveled outside the country in the last 6 months?: No Isolation: Standard ROS Review of Systems Constitutional: No Symptoms Reported Eyes: No Symptoms Reported ENTM: No Symptoms Reported Respiratoy: Non-Productive Cough and Short of Breath Cardiovascular: Chest Pain and Palpitations; negative Edema Gastrointestinal/Abdominal: No Symptoms Reported Genitourinary: No Symptoms Reported Neurological: No Symptoms Reported Musculoskeletal: No Symptoms Reported Integumentary: No Symptoms Reported Hematologic/Lymphatic: No Symptoms Reported Psychiatric: No Symptoms Reported All Other Systems: Reviewed and Negative PE Vitals Vitals: Temperature 97.9 F Pulse Rate 83 Respiratory Rate 20 Blood Pressure [Right Arm] 114/71 Blood Pressure 108/57 O2 Sat by Pulse Oximetry 96 General Limitations: No Limitations General Appearance: Alert and Anxious Head Head Exam: Normal Inspection Eyes Eye exam: Normal Appearance and PERRL Chest Chest Inspection: Normal Inspection and Tenderness (across the chest wall) Respiratory Respiratory Exam: Normal Lung Sounds Bilat; negative Accessory Muscle Use and Respiratory Distress Respiratory Exam: Bilateral: Clear to Auscultation Cardiovascular Cardiovascular Exam: Regular Rate, Normal Rhythm and Normal Heart Sounds Abdominal Exam Abdominal Exam: Normal Inspection, Normal Bowel Sounds and Soft; negative Tenderness Extremities Extremities Exam: Normal Inspection and Full ROM; negative Edema Back Back Exam: Normal Inspection and Full ROM Neurologic Neurological Exam: Alert, Oriented X3 and CN II-XII Intact; negative Motor Sensory Deficit Psychiatric Psychiatric Exam: Anxious Skin Skin Exam: Warm and Dry MDM Differential Diagnosis Differential Diagnosis: Chest Wall Pain, Costochondritis, Myocardial Infarction, Pericarditis and Pulmonary Embolus COURSE Treatment Treatment: 56 y/o male, diagnosed with pericarditis last month with recent covid, has had return of symptoms over the past 3 days. W/u initiated. given IV toradol. 1314 - CXR with degree of R > L pleural infusion, + mild opacifications. Covid +. + elevated CRP. Cardiac enzymes negative. Probable recurrance of pericarditis, with persistent Covid infection. Given IV solu- medrol. Still hurting, given IV morphine. Will recommend admission for further evaluation, treatment. ROR Labs Reviewed Laboratory Results Reviewed?: Yes Result Diagrams: 08/17/21 10:57 08/17/21 10:57 Laboratory: WBC 12.4 X10^3/uL (3.6-10.0) H 08/17/21 10:57 RBC 4.57 X10^6/uL (4.7-6.0) L 08/17/21 10:57 Hgb 13.0 g/dL (13.5-18.0) L 08/17/21 10:57 Hct 39.0 % (42.0-54.0) L 08/17/21 10:57 MCV 85.4 fL (80.0-100.0) 08/17/21 10:57 MCH 28.5 pg (27.0-34.0) 08/17/21 10:57 MCHC 33.4 g/dL (33.0-35.0) 08/17/21 10:57 RDW 14.4 % (11.6-16.5) 08/17/21 10:57 Plt Count 267 X10^3/uL (150.0-450.0) 08/17/21 10:57 MPV 9.0 fL (7.4-11.0) 08/17/21 10:57 Neut % (Auto) 83.5 % (42.0-75.0) H 08/17/21 10:57 Lymph % (Auto) 6.3 % (21.0-51.0) L 08/17/21 10:57 [place] % (Auto) 9.2 % (0.0-13.0) 08/17/21 10:57 Eos % (Auto) 0.5 % (0.9-2.9) L 08/17/21 10:57 Baso % (Auto) 0.5 % (0.2-1.0) 08/17/21 10:57 Neut # (Auto) 10.4 x10^3/uL (2.2-4.8) H 08/17/21 10:57 Lymph # (Auto) 0.8 X10^3/uL (1.3-2.9) L 08/17/21 10:57 [place] # (Auto) 1.2 x10^3/uL (0.3-0.8) H 08/17/21 10:57 Eos # (Auto) 0.1 x10^3/uL (0.0-0.2) 08/17/21 10:57 Baso # (Auto) 0.1 X10^3/uL (0.0-0.1) 08/17/21 10:57 Absolute Nucleated RBC 0.1 /100WBC 08/17/21 10:57 Sodium 140 mmol/L (136-145) 08/17/21 10:57 Corrected Sodium TNP 08/17/21 10:57 Potassium 3.7 mmol/L (3.5-5.1) 08/17/21 10:57 Chloride 104 mmol/L (98-107) 08/17/21 10:57 Carbon Dioxide 25.4 mmol/L (21-32) 08/17/21 10:57 BUN 13 mg/dL (7-18) 08/17/21 10:57 Creatinine 0.88 mg/dL (0.70-1.30) 08/17/21 10:57 Est GFR (MDRD) Af Amer > 60 (>60) 08/17/21 10:57 Est GFR (MDRD) Non-Af > 60 (>60) 08/17/21 10:57 Glucose 89 mg/dL (65-99) 08/17/21 10:57 Calcium 7.8 mg/dL (8.5-10.1) L 08/17/21 10:57 Corrected Calcium 8.8 mg/dL (8.5-10.1) 08/17/21 10:57 Total Bilirubin 1.20 mg/dL (0.2-1.0) H 08/17/21 10:57 AST 12 Units/L (15-37) L 08/17/21 10:57 ALT 21 Units/L (12-78) 08/17/21 10:57 Alkaline Phosphatase 76 Units/L (46-116) 08/17/21 10:57 Creatine Kinase 23 Units/L (39-308) L 08/17/21 10:57 CK-MB (CK-2) < 1.0 ng/mL (0-4.0) 08/17/21 10:57 CK/CKMB % Calc 4.4 % (<4) 08/17/21 10:57 Troponin I High Sens 8.3 ng/L (4.0-60.0) 08/17/21 10:57 C-Reactive Protein 186.00 mg/L (0-3.0) H 08/17/21 10:57 B-Natriuretic Peptide 132 pg/mL (0-79) H 08/17/21 10:57 Total Protein 7.0 g/dL (6.4-8.2) 08/17/21 10:57 Albumin 2.8 g/dL (3.4-5.0) L 08/17/21 10:57 Globulin 4.2 g/dL (2.5-4.5) 08/17/21 10:57 Albumin/Globulin Ratio 0.7 Ratio (1.1-2.1) L 08/17/21 10:57 Lipase 60 Units/L (73-393) L 08/17/21 10:57 SARS CoV-2 RNA Rapid ESTEPHANIA Positive (NEGATIVE) A 08/17/21 12:35 Other Results Comments: CRP very elevated at 186. Covid + still. BNP slightly elevated 132. XRAY XRAY Interpreted by: Both X-ray Results: + bilateral increased opacifications, and bilateral effusions, R > L. EKG Rate: 86 [place]: Normal Rhythm: NSR Block: None Hypertrophy: LAE ST: Nonsp (sloping elevation of ST lateral leads, more c/w pericarditis than AMI ) Opioid Opioid Risk Tool Age ([place] if 16-45): No History of Preadolescent Sexual Abuse: No Total: 0 Total Score Risk Category: Low Risk Copyright: Brijesh DUGAN predicting aberrant behaviors Diagnosis Discharge Problem: COVID-19 Pericarditis Qualifiers: Pericarditis type: unspecified type Chronicity: acute Qualified Code(s): I30.9 - Acute pericarditis, unspecified
--- NOTE | 2021-08-17 11:23 | RAD ---
HISTORYPT C/O 3 DAYS OF PAIN ACROSS THE FRONT OF HIS CHEST THAT IS WORSE WITH TAKING A DEEP BREATH. PT C/O INCREASING SHORNTESS OF BREATH WITH DRY COUGH..brcovid 2 weeks agoSTUDYCHEST, 1 [id number]/2022FINDINGSThe cardiomediastinal silhouette is widened but stable. Bibasilar airspace opacities and possible bilateral pleural effusions. No pneumothorax. The bony thorax appears intact.IMPRESSIONBibasilar opacities which may reflect edema or pneumonia. Continued follow-up recommended.Electronically signed by: RIVKA LAUGHLIN (Aug 17, 2021 11:21:29)
[2021-08-17 11:27] LABS: ALANINE AMINOTRANSFERASE 21 Units/L (12-78); ALBUMIN 2.8 g/dL (3.4-5.0); ALKALINE PHOSPHATASE 76 Units/L (46-116); ASPARTATE AMINO TRANSFERASE 12 Units/L (15-37); BLOOD UREA NITROGEN 13 mg/dL (7-18); CALCIUM 7.8 mg/dL (8.5-10.1); CARBON DIOXIDE 25.4 mmol/L (21-32); CHLORIDE 104 mmol/L (98-107); CKMB % 4.4 % (<4); COR CA(FOR HYPOALB) 8.8 mg/dL (8.5-10.1); CREATINE KINASE 23 Units/L (39-308); CREATINE KINASE MB < 1.0 ng/mL (0-4.0); CREATININE 0.88 mg/dL (0.70-1.30); LIPASE 60 Units/L (73-393); SODIUM 140 mmol/L (136-145); eGFR NON BLACK RACES > 60 (>60)
[2021-08-17 11:32] LABS: BASOPHILS # (AUTO) 0.1 X10^3/uL (0.0-0.1); BASOPHILS % (AUTO) 0.5 % (0.2-1.0); EOSINOPHILS # (AUTO) 0.1 x10^3/uL (0.0-0.2); EOSINOPHILS % (AUTO) 0.5 % (0.9-2.9); LYMPHOCYTES # (AUTO) 0.8 X10^3/uL (1.3-2.9); LYMPHOCYTES % (AUTO) 6.3 % (21.0-51.0); MEAN CORPUSCULAR HEMOGLOBIN 28.5 pg (27.0-34.0); MEAN CORPUSCULAR HGB CONC 33.4 g/dL (33.0-35.0); MEAN CORPUSCULAR VOLUME 85.4 fL (80.0-100.0); MONOCYTES # (AUTO) 1.2 x10^3/uL (0.3-0.8); MONOCYTES % (AUTO) 9.2 % (0.0-13.0); NEUTROPHILS # (AUTO) 10.4 x10^3/uL (2.2-4.8); NEUTROPHILS % (AUTO) 83.5 % (42.0-75.0); RED BLOOD COUNT 4.57 X10^6/uL (4.7-6.0); RED CELL DISTRIBUTION WIDTH 14.4 % (11.6-16.5); WHITE BLOOD COUNT 12.4 X10^3/uL (3.6-10.0)
[2021-08-17] MEDS ORDERED: SOLU-Medrol 125 MG VIAL IVP ONE (13:17)
[2021-08-17] MEDS ORDERED: SOLU-Medrol 125 MG VIAL ONE (13:26)
[2021-08-17] MEDS ORDERED: MORPHINE SULFATE INJ 4 MG IVP ONE ×2 (14:16→15:22)
[2021-08-17] MEDS ORDERED: MORPHINE SULFATE INJ 4 MG ONE (14:27)
[2021-08-17] MEDS ORDERED: ZANAFLEX PO PRN (15:22)
[2021-08-17] MEDS ORDERED: TORADOL 30 MG VIAL IVP PRN (15:22)
[2021-08-17 15:23] VITALS: BMI 28.5
[2021-08-17] MEDS ORDERED: VENTOLIN or PROAIR HFA IN PRN (19:46)
[2021-08-17] MEDS ORDERED: PULMICORT NEB TX 0.5 MG NEB ONE (19:53)
[2021-08-17] MEDS ORDERED: BROVANA ONE (19:54)
[2021-08-17] MEDS: PULMICORT NEB TX 0.5 MG NEB SCH (20:28)
[2021-08-17] MEDS ORDERED: BROVANA IN SCH (21:00)
[2021-08-17] MEDS: SOLU-Medrol 40 MG VIAL IVP SCH (21:25)
[2021-08-18 05:18] LABS: BASOPHILS % (AUTO) 0.4 % (0.2-1.0); HEMOGLOBIN 13.2 g/dL (13.5-18.0); LYMPHOCYTES # (AUTO) 0.7 X10^3/uL (1.3-2.9); LYMPHOCYTES % (AUTO) 6.8 % (21.0-51.0); MEAN CORPUSCULAR HGB CONC 33.9 g/dL (33.0-35.0); MEAN CORPUSCULAR VOLUME 85.6 fL (80.0-100.0); MONOCYTES # (AUTO) 0.2 x10^3/uL (0.3-0.8); MONOCYTES % (AUTO) 2.2 % (0.0-13.0); NEUTROPHILS # (AUTO) 8.9 x10^3/uL (2.2-4.8); NEUTROPHILS % (AUTO) 90.6 % (42.0-75.0); RED BLOOD COUNT 4.55 X10^6/uL (4.7-6.0); RED CELL DISTRIBUTION WIDTH 14.1 % (11.6-16.5); WHITE BLOOD COUNT 9.9 X10^3/uL (3.6-10.0)
[2021-08-18 05:25] LABS: ALANINE AMINOTRANSFERASE 17 Units/L (12-78); ALBUMIN 2.6 g/dL (3.4-5.0); ALKALINE PHOSPHATASE 75 Units/L (46-116); ASPARTATE AMINO TRANSFERASE 10 Units/L (15-37); BLOOD UREA NITROGEN 20 mg/dL (7-18); CALCIUM 8.3 mg/dL (8.5-10.1); CARBON DIOXIDE 22.6 mmol/L (21-32); CHLORIDE 104 mmol/L (98-107); COR CA(FOR HYPOALB) 9.4 mg/dL (8.5-10.1); COR NA(FOR HYPERGLY) 140 mmol/L (136-145); CREATININE 0.78 mg/dL (0.70-1.30); SODIUM 139 mmol/L (136-145); TOTAL PROTEIN 7.2 g/dL (6.4-8.2); eGFR NON BLACK RACES > 60 (>60)
[2021-08-18] MEDS: SOLU-Medrol 40 MG VIAL IVP SCH ×3 (05:45→21:06)
[2021-08-18 06:09] LABS: ANISOCYTOSIS SLIGHT; BAND NEUTROPHILS % 4 % (0-10); PLATELET MORPHOLOGY COMMENT NORMAL (NORMAL)
[2021-08-18] MEDS ORDERED: TOPROL XL PO ONE (08:35)
[2021-08-18] MEDS: COLCRYS TAB 0.6 MG PO SCH (08:39)
[2021-08-18] MEDS: TOPROL XL PO SCH (08:40)
[2021-08-18] MEDS ORDERED: BROVANA ONE ×2 (09:02→19:28)
[2021-08-18] MEDS: PULMICORT NEB TX 0.5 MG NEB SCH ×2 (09:19→20:00)
--- NOTE | 2021-08-18 11:18 | DR.H&P ---
H&P History & Physical for Day of: H&P Date: 08/18/21 Chief Complaint Chief Complaint: chest pain Allergies Allergies Allergy/AdvReac Type Severity Reaction Status Date / Time No Known Drug Allergies Allergy Verified 11/24/20 11:56 History of Present Illness History of Present Illness: Patient presents with chest pain that started 3 days ago. He was recently admitted for covid-19 infection and pericarditis last month. Patient states he had been taking colchicine and ibuprofen and his symptoms had resolved but then restarted 3 days ago. He reports chest pain with deep breath all across his chest. Pain is worse with laying flat or moving, better when still. He also reports having palpitations. He is fairly comfortable right now with no acute distress. He is on room air. He was set up to see Dr Cameron outpatient and did see him in the clinic. He had an echo done on 08/15/21, results pending. He denies cough, fever or chills. Denies nausea, vomiting or diarrhea. He has been fairly active and denies doing anything strenuous. ER work up - COVID-19 + - Labs: trop (-) CRP 186 - CXR: bibasilar opacities - Echo from last admission: EF 55% small-moderate pericardial effusion, no signs of tamponade Plan: continue pain control with IV Toradol prn. Continue IV solumedrol and colchicine. Repeat EKG and cardiac enzymes. Continue metoprolol succinate. Continue telemetry. Follow up echo results. Monitor AM labs/imaging. Past Surgical History Surgical History: Appendectomy and Ortho Surgery Family History Family Medical History: [place], Coronary Artery Disease and Hypertension Social History Does patient currently use any type of tobacco product: No Have you used tobacco products in the last 12 months: No Type of Tobacco Use: None Does any household member use tobacco: No Alcohol Use: None Prescription drug monitoring program results: PDMP reviewed and no concerns identified Medications Home Medications: No Known Drug Allergies Allergy (Verified 11/24/20 11:56) CONTINUE taking the following medications metoprolol succinate 50 mg PO DAILY 08/17/21 [History] Labs Result Diagrams: 08/18/21 04:12 08/18/21 04:12 Labs: Laboratory WBC 9.9 X10^3/uL (3.6-10.0) 08/18/21 04:12 RBC 4.55 X10^6/uL (4.7-6.0) L 08/18/21 04:12 Hgb 13.2 g/dL (13.5-18.0) L 08/18/21 04:12 Hct 39.0 % (42.0-54.0) L 08/18/21 04:12 MCV 85.6 fL (80.0-100.0) 08/18/21 04:12 MCH 29.0 pg (27.0-34.0) 08/18/21 04:12 MCHC 33.9 g/dL (33.0-35.0) 08/18/21 04:12 RDW 14.1 % (11.6-16.5) 08/18/21 04:12 Plt Count 251 X10^3/uL (150.0-450.0) 08/18/21 04:12 Plt Count Comment Adequate (ADEQUATE) 08/18/21 04:12 MPV 9.0 fL (7.4-11.0) 08/18/21 04:12 Neut % (Auto) 90.6 % (42.0-75.0) H 08/18/21 04:12 Lymph % (Auto) 6.8 % (21.0-51.0) L 08/18/21 04:12 [place] % (Auto) 2.2 % (0.0-13.0) 08/18/21 04:12 Eos % (Auto) 0.0 % (0.9-2.9) L 08/18/21 04:12 Baso % (Auto) 0.4 % (0.2-1.0) 08/18/21 04:12 Neut # (Auto) 8.9 x10^3/uL (2.2-4.8) H 08/18/21 04:12 Lymph # (Auto) 0.7 X10^3/uL (1.3-2.9) L 08/18/21 04:12 [place] # (Auto) 0.2 x10^3/uL (0.3-0.8) L 08/18/21 04:12 Eos # (Auto) 0.0 x10^3/uL (0.0-0.2) 08/18/21 04:12 Baso # (Auto) 0.0 X10^3/uL (0.0-0.1) 08/18/21 04:12 Absolute Nucleated RBC 0.0 /100WBC 08/18/21 04:12 Total Counted 100 08/18/21 04:12 Neutrophils % (Manual) 81 % (39-76) H 08/18/21 04:12 Band Neutrophils % 4 % (0-10) 08/18/21 04:12 Lymphocytes % (Manual) 10 % (13-43) L 08/18/21 04:12 Monocytes % (Manual) 5 % (4-9) 08/18/21 04:12 Plt Morphology Comment Normal (NORMAL) 08/18/21 04:12 RBC Morphology Abnormal (NORMAL) 08/18/21 04:12 Anisocytosis Slight A 08/18/21 04:12 Sodium 139 mmol/L (136-145) 08/18/21 04:12 Corrected Sodium 140 mmol/L (136-145) 08/18/21 04:12 Potassium 4.6 mmol/L (3.5-5.1) 08/18/21 04:12 Chloride 104 mmol/L (98-107) 08/18/21 04:12 Carbon Dioxide 22.6 mmol/L (21-32) 08/18/21 04:12 BUN 20 mg/dL (7-18) H 08/18/21 04:12 Creatinine 0.78 mg/dL (0.70-1.30) 08/18/21 04:12 Est GFR (MDRD) Af Amer > 60 (>60) 08/18/21 04:12 Est GFR (MDRD) Non-Af > 60 (>60) 08/18/21 04:12 Glucose 158 mg/dL (65-99) H 08/18/21 04:12 Calcium 8.3 mg/dL (8.5-10.1) L 08/18/21 04:12 Corrected Calcium 9.4 mg/dL (8.5-10.1) 08/18/21 04:12 Total Bilirubin 0.70 mg/dL (0.2-1.0) 08/18/21 04:12 AST 10 Units/L (15-37) L 08/18/21 04:12 ALT 17 Units/L (12-78) 08/18/21 04:12 Alkaline Phosphatase 75 Units/L (46-116) 08/18/21 04:12 Creatine Kinase 23 Units/L (39-308) L 08/17/21 10:57 CK-MB (CK-2) < 1.0 ng/mL (0-4.0) 08/17/21 10:57 CK/CKMB % Calc 4.4 % (<4) 08/17/21 10:57 Troponin I High Sens 8.3 ng/L (4.0-60.0) 08/17/21 10:57 C-Reactive Protein 186.00 mg/L (0-3.0) H 08/17/21 10:57 B-Natriuretic Peptide 132 pg/mL (0-79) H 08/17/21 10:57 Total Protein 7.2 g/dL (6.4-8.2) 08/18/21 04:12 Albumin 2.6 g/dL (3.4-5.0) L 08/18/21 04:12 Globulin 4.6 g/dL (2.5-4.5) H 08/18/21 04:12 Albumin/Globulin Ratio 0.6 Ratio (1.1-2.1) L 08/18/21 04:12 Lipase 60 Units/L (73-393) L 08/17/21 10:57 SARS CoV-2 RNA Rapid ESTEPHANIA Positive (NEGATIVE) A 08/17/21 12:35 Review of Systems Constitutional: No Symptoms Reported Eyes: No Symptoms Reported ENT: No Symptoms Reported Respiratory: Pleuritic Pain Cardiovascular: Chest Pain; denies Edema Gastrointestinal: No Symptoms Reported Genitourinary: No Symptoms Reported Musculoskeletal: No Symptoms Reported Skin: No Symptoms Reported Neurological: No Symptoms Reported Physical Exam Vital Signs: Temperature 97.8 F Pulse Rate [Apical] 88 Pulse Rate 70 Respiratory Rate 18 Blood Pressure [Right Arm] 111/67 Blood Pressure 105/71 O2 Sat by Pulse Oximetry 90 Oriented: Normal Eyes: Normal Ear: Normal Nose: Normal Throat: Normal Respiratory: Clear Throughout Cardiovascular: Normal Auscultation: Bowel Sounds: Normal Palpation: Normal Tenderness: Normal Skin: Normal Musculoskeletal: Normal Psychiatric: Normal and Anxiety Mood Description: Anxious Affect: Normal Speech Pattern: Clear and Appropriate Assessment/Plan (1) Pericarditis: Qualifiers: Chronicity: acute Pericarditis type: unspecified type Qualified Code(s): I30.9 - Acute pericarditis, unspecified Status: Acute (2) Pericardial effusion: Status: Acute (3) COVID-19: Status: Acute (4) Viral pericarditis with pericardial effusion: Status: Acute Review H&P Reviewed: Yes Patient was examined?: Yes
[2021-08-18 12:18] LABS: CREATINE KINASE 20 Units/L (39-308); CREATINE KINASE MB < 1.0 ng/mL (0-4.0)
[2021-08-19 05:40] LABS: BLOOD UREA NITROGEN 22 mg/dL (7-18); CALCIUM 8.1 mg/dL (8.5-10.1); CARBON DIOXIDE 22.8 mmol/L (21-32); CHLORIDE 105 mmol/L (98-107); COR NA(FOR HYPERGLY) 142 mmol/L (136-145); CREATININE 0.83 mg/dL (0.70-1.30); SODIUM 140 mmol/L (136-145); eGFR NON BLACK RACES > 60 (>60)
[2021-08-19 05:42] LABS: BASOPHILS % (AUTO) 0.3 % (0.2-1.0); HEMATOCRIT 37.4 % (42.0-54.0); HEMOGLOBIN 12.7 g/dL (13.5-18.0); LYMPHOCYTES # (AUTO) 0.7 X10^3/uL (1.3-2.9); MEAN CORPUSCULAR HEMOGLOBIN 28.9 pg (27.0-34.0); MEAN PLATELET VOLUME 8.8 fL (7.4-11.0); MONOCYTES # (AUTO) 0.5 x10^3/uL (0.3-0.8); MONOCYTES % (AUTO) 3.3 % (0.0-13.0); NEUTROPHILS # (AUTO) 12.7 x10^3/uL (2.2-4.8); NEUTROPHILS % (AUTO) 91.4 % (42.0-75.0); RED CELL DISTRIBUTION WIDTH 14.1 % (11.6-16.5); WHITE BLOOD COUNT 13.9 X10^3/uL (3.6-10.0)
--- NOTE | 2021-08-19 05:42 | RAD ---
HISTORYCHEST PAIN, SOB, COVID+ recent pericarditis.brsurgeries: appendix, hernia repairSTUDYCHEST, 1 [id number]/2022FINDINGSThe trachea is midline. The cardiac silhouette is mildly enlarged.. Bibasilar airspace opacities improved from prior study. No pneumothorax. The bony thorax is unremarkable.IMPRESSIONMild cardiomegaly.Improved aeration within the lung bases from previous 08/17/2021.Electronically signed by: Jorge Alberto Crespo (Aug 19, 2021 05:40:28)
[2021-08-19 06:07] LABS: PLATELET MORPHOLOGY COMMENT NORMAL (NORMAL)
[2021-08-19] MEDS: SOLU-Medrol 40 MG VIAL IVP SCH (06:31)
[2021-08-19 06:33] VITALS: BP 122/69
[2021-08-19] MEDS: PULMICORT NEB TX 0.5 MG NEB SCH (08:44)
[2021-08-19] MEDS ORDERED: TOPROL XL PO ONE (09:33)
[2021-08-19] MEDS: TOPROL XL PO SCH (09:34)
[2021-08-19] MEDS: COLCRYS TAB 0.6 MG PO SCH (09:34)
[2021-08-19] MEDS ORDERED: LOVENOX INJ 30 MG SYR SC SCH (10:00)
== END 2021-08-19 13:00 | disposition home or self-care (01) ==
LOC: SUPCPDRO → ICU 10:23 → ER 10:23 → ICU 14:57
PROVIDERS: ADMIT Internal Medicine; ATTEND Obstetrics & Gynecology Obstetrics
DX: R07.89 Other chest pain; R79.82 Elevated C-reactive protein (CRP); U07.1 COVID-19; I30.9 Acute pericarditis, unspecified; R06.02 Shortness of breath